=== PATIENT | male | born 1965 | race Caucasian/White ===

== ENCOUNTER 2020-06-16 04:49 | Inpatient (IN) | payer OTHER ==
[2020-06-16] VITALS (7 sets, daily range): BP systolic 104–134; BP diastolic 58–79
[~2020-06-16] VITALS: Ht 175.3 cm; Wt 74.5 kg
[2020-06-16 05:29] LABS: ABSOLUTE NEUTROPHILS 8.8 thou/uL (1.4-8.2); BASOPHILS 0.2 % (0.0-2.0); MCH 30.6 pg (26.0-34.0); MCHC 34.1 g/dL (28.0-37.0); MCV 89.7 fL (80.0-100.0); MONOCYTES 3.9 % (1.0-8.0); PLATELET COUNT 193 thou/uL (150-400); POLYS 85.9 % (36.0-66.0); RBC 4.57 mil/uL (4.50-6.00); RDW 12.7 % (10.5-14.5); WBC 10.3 thou/uL (4.0-11.0)
[2020-06-16] MEDS ORDERED: VENTOLIN HFA INH8 GM INH (05:35)
[2020-06-16] MEDS ORDERED: AVAPRO300 MG PO (05:35)
[2020-06-16] MEDS ORDERED: SYMBICORT160 MCG/4. INH (05:35)
[2020-06-16] MEDS ORDERED: MULTI VITAMIN1 EACH PO (05:36)
[2020-06-16] MEDS ORDERED: ZYRTEC10 M5 PO (05:36)
[2020-06-16] MEDS ORDERED: AZITHROMYCIN 2250 MG PO (05:36)
[2020-06-16] MEDS ORDERED: ZINC SULFATE220 MG PO ×2 (05:36)
[2020-06-16] MEDS ORDERED: VITAMIN D325 MC5 PO (05:37)
--- NOTE | 2020-06-16 05:38 | NUR ---
Pt's number: [phone] Reema () [phone]
[2020-06-16 05:48] LABS: CALCIUM 8.2 mg/dL (8.5-10.1); CREATININE 1.3 mg/dL (0.7-1.3); POTASSIUM 3.7 mmol/L (3.5-5.1)
[2020-06-16 05:56] LABS: TOTAL BILIRUBIN 0.9 mg/dL (0.2-1.0); TOTAL PROTEIN 6.6 g/dL (6.4-8.2)
--- NOTE | 2020-06-16 11:17 | EKG ---
[place] [address] [facility] [place] [address] ELECTROCARDIOGRAM REPORT Name: RAEL MIGUEL Room #: 170-11 ADM IN M.R.#: [id number] Admission: 06/16/20 Attend Phys: Helga Hylton Discharge: Date of : 63 Report #: [id number] ED Test Date: 2020-06-16 Test Time: 05:13:47 Pat Name: REAL MIGUEL Department: Room: 170 Gender: M Fingernail Technician: michel : 1965 Requested By: Patrick Muller Order Number: [id number] MD: Joselito Bryson Measurements Intervals [place] Rate: 82 P: 13 WI: 150 QRS: -42 QRSD: 102 T: 145 QT: 399 QTc: 466 Interpretive Statements Sinus rhythm Abnormal R-wave progression, late transition Abnormal T, consider ischemia, lateral leads No previous ECG available for comparison Electronically Signed On 06-16-2020 11:17:50 ICER MACHINE by Joselito Bryson [email or web address] <ELECTRONICALLY SIGNED> By: Joselito Bryson MD, [facility] 06/16/20 1117 0513 2 Joselito Bryson MD, FACC /EPI
--- NOTE | 2020-06-16 14:20 | NUR ---
PT CARE ASSUMED AT 1248 FROM ER. A&Ox4. ADMISSION COMPLEETED AND ORDERS ACTIVATED. NSR ON TELE. PT CAME UP FROM THE ER ON 3L AND HAD TO BE CHANGED TO 6L DUE TO DESATING TO 78% WHILE RESTING. PT EDUCATED ON PURSED LIPS BREATHING AND KEEPING HOB ELEVATED. DR. HIRSCH INFORMED AND AWAITING FURTHER ORDERES. ADMISSON TELE STRIP ON CHART. CALL LIGHT IN REACH. WILL CONTINUE TO MONITOR.
[2020-06-17] VITALS (7 sets, daily range): BP systolic 125–156; BP diastolic 83–90
--- NOTE | 2020-06-17 00:49 | NUR ---
PT ALERT AND ORIENTED X4 VSS RR 24-28 ON 6LNC.BS DIMINISHED AND CARSE AT BASES. NOTIFIED TOBACCO CLOTH RECLAIMER PT C/O SOA AND WANTED BREATHING TX. INHALERS GIVEN PER RT . PT RESTING QUIETLY PRESENTLY. SPUTUM, URINE AND MRSA, STREP, SAMPLES SENT TO LAB. STARTED ABX ORDERED.
--- NOTE | 2020-06-17 01:49 | NUR ---
PT HAD APPROXIMATELY 17 SEC RUN SVT. T 99.6 RR 28, SAT 93 ON 6LNC. SEE VS. NOTIFIED RT OF SAT AND PT BREATHS WITH MOUTH OPEN NOT BREATHING THROUGH NOSE. HE STATED HE WOULD CHANGE HIM TO HFNC OR MASK AND SET UP O2 SAT MONITOR.
[2020-06-17 02:08] LABS: BE(vivo) 4.6 mmol/L (-2 to +3); HCO3 26.5 mmol/L (22.0-26.0); PCO2 31.6 mmHg (35.0-45.0); pH 7.542 (7.360-7.450); sO2 89.6 % (92.0-98.0)
[2020-06-17 02:09] LABS: PO2 49.2 mmHg (80.0-100.0)
--- NOTE | 2020-06-17 02:33 | NUR ---
NOTIFIED DATA COMMUNICATIONS TECHNICIAN OF INCREASED HYPOXIA. INCREASZED RR , DESATS TO 88% ON 12 HF NC STARTING FROM 6LNC. ABGS DONE AND CALLED TO DATA COMMUNICATIONS TECHNICIAN. STAT PULMONARY CONSULT CALLED TO DR HERRERA. PT PLACED ON BIPAP. NO ICU BEDS AVAILABLE RIGHT NOW. WE WILL SEE OW PT DOES ON BIPAP AND REEVALUATE. DR HERRERA NOTIFIED NO BEDS AVAILABLE.
[2020-06-17 06:21] LABS: ABSOLUTE NEUTROPHILS 12.1 thou/uL (1.4-8.2); BASOPHILS 0.1 % (0.0-2.0); HEMATOCRIT 39.6 % (42.0-52.0); HEMOGLOBIN 13.3 gm/dL (14.0-18.0); LYMPHOCYTES 3.7 % (24.0-44.0); MCH 30.1 pg (26.0-34.0); MCHC 33.5 g/dL (28.0-37.0); MCV 89.8 fL (80.0-100.0); MONOCYTES 4.9 % (1.0-8.0); PLATELET COUNT 202 thou/uL (150-400); POLYS 91.3 % (36.0-66.0); RBC 4.41 mil/uL (4.50-6.00); WBC 13.2 thou/uL (4.0-11.0)
[2020-06-17 06:47] LABS: ALBUMIN 2.6 g/dL (3.4-5.0); CALCIUM 8.4 mg/dL (8.5-10.1); CREATININE 1.2 mg/dL (0.7-1.3); DIRECT BILIRUBIN 0.2 mg/dL (<0.1-0.2); INR 1.1; PHOSPHORUS 3.5 mg/dL (2.5-4.9); PROTIME 10.8 Seconds (9.3-11.4); TOTAL BILIRUBIN 0.6 mg/dL (0.2-1.0); TOTAL PROTEIN 6.7 g/dL (6.4-8.2)
--- NOTE | 2020-06-17 18:15 | NUR ---
ASSUMED PATIENT CARE AT 0700. A/O X4. ON 15L HIGH FOLLOW OR 80% BIPAP. DESAT WITH EEXERTION. FACETIME WITH . NOT TOWARDS POC GOALS.
--- NOTE | 2020-06-18 03:06 | NUR ---
PATIENT ALERT AND ORIENTED X4. BIPAP ON DURING THE NIGHT WITH RT MONITORING. VOIDING PER URINAL. UP ADLIB. CONTINUOUS PULSE OX OPERATING. DENIES PAIN. VITALS STABLE. WILL MONITOR.
--- NOTE | 2020-06-18 05:58 | NUR ---
AFTER ADMINISTERING ONE TIME ORDER OF METOPROLOL 5MG IVP PER SHALE MINER TAHIRA PATIENTS BP 129/66 WITH PULSE OF 75. BREATHING EVEN SITTING UP IN BED. WILL MONITOR.
[2020-06-18 07:04] LABS: ALBUMIN 2.5 g/dL (3.4-5.0); CALCIUM 8.9 mg/dL (8.5-10.1); DIRECT BILIRUBIN 0.1 mg/dL (<0.1-0.2); PHOSPHORUS 3.8 mg/dL (2.6-4.7); POTASSIUM 4.1 mmol/L (3.5-5.1); TOTAL BILIRUBIN 0.6 mg/dL (0.2-1.0); TOTAL PROTEIN 6.9 g/dL (6.4-8.2)
[2020-06-18 07:49] VITALS: BP 108/68
[2020-06-18 15:20] VITALS: BP 106/69
--- NOTE | 2020-06-18 15:31 | NUR ---
INITIAL ASSESSMENT: SW reviewed chart and spoke with nursing and attending physician. Pt was admitted from home due to pneumonia. Pt placed in Enhanced Isolation due to COVID-19. Pt tested positive as an outpatient. Pt is afebrile and requiring bipap support. Pt is on IV abx and IV steroids. Pt is completing courses of Ivermectin and Remdesivir. Per chart, pt is alert/orientated x 4. Pt lives at home with his , who is also COVID positive. Pt was independent with ADLs prior to admission. Pt's PCP is Dr. Chay Vela. Pt will need therapy evals to determine discharge needs. SW is following to assist as needed with discharge planning.
--- NOTE | 2020-06-18 18:27 | NUR ---
ASSUMED PATIENT CARE AT 0700. A/O X 3. CONFUSED. PATIENT HAS BEEN ON CARDIZEN GTT SINCEN IN AM. BP TOLERATED ON CARDIZEM GTT AT 15ML/HR. NOT TOLERATED 15L NC. 70% BIPAP MOST TIME. NOT TOWARDS POC GOALS.
[2020-06-18 19:22] VITALS: BP 122/71
[2020-06-19] VITALS (70 sets, daily range): BP systolic 72–153; BP diastolic 41–86
[2020-06-19 05:40] LABS: HEMATOCRIT 43.4 % (42.0-52.0); HEMOGLOBIN 14.7 gm/dL (14.0-18.0); MCH 30.7 pg (26.0-34.0); MCHC 33.8 g/dL (28.0-37.0); MCV 90.7 fL (80.0-100.0); RBC 4.79 mil/uL (4.50-6.00); RDW 13.3 % (10.5-14.5); WBC 21.4 thou/uL (4.0-11.0)
[2020-06-19 05:55] LABS: ALBUMIN 2.4 g/dL (3.4-5.0); CALCIUM 8.5 mg/dL (8.5-10.1); CREATININE 1.3 mg/dL (0.7-1.3); DIRECT BILIRUBIN 0.1 mg/dL (<0.1-0.2); MAGNESIUM 2.6 mg/dL (1.8-2.4); PHOSPHORUS 4.5 mg/dL (2.6-4.7); POTASSIUM 4.4 mmol/L (3.5-5.1); TOTAL BILIRUBIN 0.6 mg/dL (0.2-1.0); TOTAL PROTEIN 6.4 g/dL (6.4-8.2)
--- NOTE | 2020-06-19 06:07 | NUR ---
PT STILL ON DILTIAZEM DRIP AT 15ML/HR, TELE SHOWS AFIB AND HR 95-117. ADMIT STATUS CHANGED TO CCT. PT ON BIPAP ALL NIGHT. ANXIETY HIGH PT DEMANDS THE CONTINUOS PULSE OX BE FACING HIM. PT USES CALL LIGHT TO CALL OUT FOR NEEDS.
--- NOTE | 2020-06-19 14:56 | NUR ---
SW reviewed chart and spoke with nursing and attending physician. Pt remains in Enhanced Isolation due to COVID-19. Pt transferred to ICU earlier today. Pt afebrile and on cardizem gtt. Pt on IV abx and IV steroids. Completing course of Remdesivir. Pt now intubated. SW is following to assist as needed with discharge planning.
--- NOTE | 2020-06-19 15:19 | NUR ---
VASCULAR ACCESS CONSULTED FOR CVAD MEDICAL NECESSITY AFTER INTUBATION. PT'S LABD,HX REVIEWED. RIJ WAS WIDELY PATENT WITH USG. 25CM 6FR JACC TL INSERTED TO 8CM EXTERNAL. STAT CXR ORDERED
--- NOTE | 2020-06-19 15:29 | NUR ---
CXR CONFIRMED CVAD PLACEMENT. RIJ RELEASED FOR IMMEDIATE USE PER PROTOCOL TO PABLO HEADLEY
--- NOTE | 2020-06-19 19:18 | NUR ---
PT SEEN TODAY BY , WAS INTUBATED BY WELL. PT ARRIVE TO THE UNIT FROM 3W AFTER UNSUCCESFUL USE OF BIPAP/NONREBREATHER, AND INCREASING CONFUSION RELATED TO HYPPOXIA, ABGs WERE ABNORMAL. PT ARRIVED VIA RN/QUARTZ ORIENTATOR ESCORT VIA WHEELCHAIR, WAS ABLE TO TURN SELF INTO BED. PT HAD A BLACK/GOLD RING AT THE TIME OF ARRIVAL, RN TOOK IT OFF, PUT IT IN A PLASTIC BAG, AND TAPED IT TO THE CLOSET SINCE WE CANNOT TAKE ITEMS OUT OF THE ROOM DUE TO COVID. CAPPS WAS STARTED, OG WAS ALSO STARTED, CENTRAL LINE INSERTED WELL. PROPOFOL/FENTANYL/VERSED GTT WAS INITIATED WELL. PT IS CURRENTLY SUSTAINING MAP OF GREATER THAN 65 AND HAD EQUAL URINE OUTPUT INPUT THIS SHIFT. VENTILATOR SETTINGS ARE CONTROLLED BY THE RT. RN SIGNING OFF AT THIS TIME. WAS NOTIFIED, OF PT BEING IN RESTRAINTS AND UPDATED REGARDING CURRENT CONDITON. WANTED RN TO SPEAK WITH THE DAUGHTER, PER STATISTICAL PROGRAMMER, ONLY ONE AUTHORIZED PERSONEL CAN RECEIVE THE INFORMATION, AND RN EXPLAINED THIS AND BARON THE PT'S TO RELAY MUCH INFO POSSIBLE, THAT RN WILL UPDATE IF ANY STATUS CHANGE OCCURS AND THE CAN CALL ANYTIME SHE WISHES FOR AN UPATE. PT'S VERBALIZED UNDERSTANDING OF CURRENT CAREPLAN.
[2020-06-19 21:05] LABS: BE(vivo) -1.9 mmol/L (-2 to +3); HCO3 24.6 mmol/L (22.0-26.0); PO2 185.2 mmHg (80.0-100.0); sO2 99.2 % (92.0-98.0)
[2020-06-19 21:07] LABS: pH 7.327 (7.360-7.450)
--- NOTE | 2020-06-19 22:12 | NUR ---
Updated Reema (spouse) on pt's current condition and events. no significant events and stable with current interventions.
[2020-06-20] VITALS (35 sets, daily range): BP systolic 79–127; BP diastolic 39–82
--- NOTE | 2020-06-20 06:30 | NUR ---
Pt attempted to extubate himself twice overnight but staff was able to intervene. Dr. Malik notified and aware. Additional sedation was ordered for pt. continue with plan of care.
[2020-06-20 06:33] LABS: ALBUMIN 2.4 g/dL (3.4-5.0); CALCIUM 8.3 mg/dL (8.5-10.1); CREATININE 1.8 mg/dL (0.7-1.3); DIRECT BILIRUBIN 0.3 mg/dL (<0.1-0.2); PHOSPHORUS 5.1 mg/dL (2.5-4.9); TOTAL BILIRUBIN 0.8 mg/dL (0.2-1.0); TOTAL PROTEIN 6.3 g/dL (6.4-8.2)
--- NOTE | 2020-06-20 10:44 | NUR ---
Rec glucerna 1.2 to reach goal 45ml/hr. If feeding pump not available, will need to change to Jevity 1.5, 3 cartons per day (Glucerna is not available in cartons). Water flushes 100ml TID ordered by Dr Hylton
--- NOTE | 2020-06-20 19:20 | NUR ---
PT IS NOT PORGRESSING TOWARDS DISCHARGE, PT'S FIO2 STILL REMAINS HIGH AT 90%, PT'S PROPOFOL/LEVOPHED/VERSED/FENTANYL STILL RUNNING AT THIS TIME. URINE OUTPUT WAS DECENT, PT IS RETAINING FLUIDS. PT'S REP ADRIAN CALLED AND WAS UPDATED REGARDING CURRENT STATUS OF THE PT. IT WAS STATED THAT PT IS STILL IN CRITICAL STATUS. ADRIAN WANTED TO SPEAK WITH AN MD AND RECEIVE AN UPDATE. WAS NOTIFIED, ADRIAN LATER IN THE DAY STATED THAT SHE HAD MISSED A PHONE CALL, RN NOTIFIED TO CALL AGAIN. RN SINGING OFF AT THIS TIME
[2020-06-21] VITALS (65 sets, daily range): BP systolic 82–172; BP diastolic 43–87
[2020-06-21 13:38] LABS: HEMATOCRIT 40.9 % (42.0-52.0); HEMOGLOBIN 13.5 gm/dL (14.0-18.0); MCH 30.2 pg (26.0-34.0); MCHC 32.9 g/dL (28.0-37.0); MCV 91.7 fL (80.0-100.0); PLATELET COUNT 315 thou/uL (150-400); RBC 4.47 mil/uL (4.50-6.00); RDW 12.8 % (10.5-14.5); WBC 15.4 thou/uL (4.0-11.0)
[2020-06-21 14:00] LABS: ALBUMIN 2.1 g/dL (3.4-5.0); CALCIUM 8.1 mg/dL (8.5-10.1); CREATININE 1.6 mg/dL (0.7-1.3); TOTAL BILIRUBIN 0.6 mg/dL (0.2-1.0); TOTAL PROTEIN 5.7 g/dL (6.4-8.2)
[2020-06-21 14:58] LABS: ABSOLUTE NEUTROPHILS 14.2 thou/uL (1.4-8.2)
--- NOTE | 2020-06-21 17:53 | NUR ---
PT INTUBATED AND SEDATED. VENT SETTINGS UNCHANGED. SEDATION VACATION THIS AM, PT BECAME VERY TACHYPNEIC, TACHYCARDIC, AND AGITATED. PT WAS FEBRILE TODAY T-MAX 37.7, NO BM, ADEQUATE UOP, TUBE FEED INIATED. LEVOPHED GTT IN PLACE FOR BP SUPPORT. CAPPS REPLACED DUE TO SEDIMENT BUILDUP AND BLOCKAGE OF FLOW. PT HAS BEEN UPDATED AND EDUCATED ON CONDITION AND POC. ATTEMPTED TO CALL ADRIAN, PHONE NUMBER LISTED IS THE WRONG NUMBER. TRIED TO USE SAME NUMBER WITH 816 AREA CODE BUT IT WAS A NON WORKING NUMBER. PT SLOWLY PROGRESSING TOWARDS POC.
[2020-06-21 23:06] LABS: GLYCOHEMOGLOBIN (HGB A1C) 6.2 % (4.8-5.6)
[2020-06-22] VITALS (80 sets, daily range): BP systolic 82–159; BP diastolic 50–96
[2020-06-22 03:13] LABS: CALCIUM 8.1 mg/dL (8.5-10.1); CREATININE 1.4 mg/dL (0.7-1.3); MAGNESIUM 3.4 mg/dL (1.8-2.4); POTASSIUM 5.2 mmol/L (3.5-5.1); TOTAL BILIRUBIN 0.5 mg/dL (0.2-1.0); TOTAL PROTEIN 5.5 g/dL (6.4-8.2)
--- NOTE | 2020-06-22 05:54 | NUR ---
ASSUMED CARE OF PATIENT AT 1900.VSS, REMAINS ON LEVO GTT. UNABLE TO WEAN OFF. TUBE FEED INCREASED TOLERATED. SPOKE WITH , UPDATED POC. NOT PROGRESSING TOWARDS POC GOALS AT THIS TIME.
--- NOTE | 2020-06-22 10:08 | NUR ---
ASSUMED CARE AT 0700, ASSESSMENT AND VITAL SIGNS COMPLETED PER ICU PROTOCOL. PT'S , ADRIAN, CALLED RN FOR AN UPDATE, SECURITY CODE PROVIDED. UPDATE GIVEN TO . RN WILL CONTINUE TO MONITOR.
[2020-06-23] VITALS (106 sets, daily range): BP systolic 85–162; BP diastolic 60–105
--- NOTE | 2020-06-23 03:29 | NUR ---
ASSUMED CARE OF PATIENT AT 1900. PROPOFOL STOPPED. BY 2014 PATIENT WAS TACHYPNIC, DIAPHORETIC, AND RESTLESS. BEGAN GRIMACING AND COUGHING. PROPOFOL TURNED BACK ON AND TITRATED FOR LIGHT SEDATION. BP INCREASED, LEVOPHED GTT STOPPED. FEBRILE AT MIDNIGHT. TYLENOL GIVEN. SLIGHT DOWNWARD TREND IN TEMP. SPOKE WITH , SHE WOULD LIKE TO FACETIME THURSDAY EVENING. WILL COMMUNICATE TO DAY SHIFT. NOT PROGRESSING TOWARDS POC GOALS.
[2020-06-23 03:52] LABS: BE(vivo) 1.7 mmol/L (-2 to +3); HCO3 26.4 mmol/L (22.0-26.0); PCO2 41.7 mmHg (35.0-45.0); PO2 72.9 mmHg (80.0-100.0); pH 7.419 (7.360-7.450); sO2 94.9 % (92.0-98.0)
[2020-06-23 06:05] LABS: HEMATOCRIT 44.8 % (42.0-52.0); HEMOGLOBIN 14.8 gm/dL (14.0-18.0); MCH 30.4 pg (26.0-34.0); MCHC 33.1 g/dL (28.0-37.0); MCV 91.8 fL (80.0-100.0); PLATELET COUNT 273 thou/uL (150-400); RBC 4.87 mil/uL (4.50-6.00); RDW 13.1 % (10.5-14.5); WBC 20.4 thou/uL (4.0-11.0)
[2020-06-23 06:22] LABS: ALBUMIN 2.1 g/dL (3.4-5.0); CALCIUM 8.1 mg/dL (8.5-10.1); CREATININE 1.4 mg/dL (0.7-1.3); POTASSIUM 5.3 mmol/L (3.5-5.1); TOTAL BILIRUBIN 0.7 mg/dL (0.2-1.0); TOTAL PROTEIN 5.9 g/dL (6.4-8.2)
[2020-06-23 07:22] LABS: ABSOLUTE NEUTROPHILS 19.6 thou/uL (1.4-8.2)
[2020-06-23 07:23] LABS: ANISOCYTOSIS SLIGHT
--- NOTE | 2020-06-23 14:10 | NUR ---
ASSUMED CARE AT 0700, ASSESSMENT AND VITAL SIGNS COMPLETED PER ICU PROTOCOL. DR. VILLAGRAN ROUNDED THIS AM, PLAN OF CARE DISCUSSED. PT'S , ADRIAN, CALLED RN FOR AN UPDATE, SECURITY CODE PROVIDED.
[2020-06-24] VITALS (59 sets, daily range): BP systolic 78–142; BP diastolic 54–87
--- NOTE | 2020-06-24 03:37 | NUR ---
ASSUMED CARE OF PATIENT AT 1900. OG RESIDUAL CHECKED, BROWN CHOCOLATE MILK COLOR. STILL NO BM. ALSO TIDALING NOTED IN CHEST TUBE. DR VILLAGRAN NOTIFIED. HOLDING TUBE FEED, OG TO LIS, KUB RESULTS SHOW CONSTIPATION. ORDER RECIEVED FOR SUPPOSITORY, GIVEN DIRECTED. OBTAINED ORDERS FOR GASTRIC OCCULT BLOOD, RESULTS POSITIVE. AT 0100 INCREASED CREPITUS NOTED. CHEST TUBE CHECKED FOR KINK OR DISLODGMENT. NONE NOTED. STAT CXR ORDERED, STILL WAITING FOR RESULTS. DR VILLAGRAN NOTIFIED, ORDERS TO INCREASE TO -40. WAS ABLE TO FACETIME WITH PATIENT FOR AN HOUR OR SO. WOULD LIKE TO DO IT AGAIN. UPDATED HER EARLY IN EVENING ON PROGRESS. ALL QUESTIONS ANSWERED. VERBALIZED UNDERSTANDING. PT NOT PROGRESSING TOWARDS POC GOALS.
[2020-06-24 04:18] LABS: APTT 26.6 Seconds (24.5-32.8); PROTIME 10.7 Seconds (9.3-11.4)
[2020-06-24 04:22] LABS: HEMATOCRIT 45.2 % (42.0-52.0); HEMOGLOBIN 14.5 gm/dL (14.0-18.0); MCH 29.8 pg (26.0-34.0); MCHC 32.1 g/dL (28.0-37.0); RBC 4.86 mil/uL (4.50-6.00); RDW 13.2 % (10.5-14.5); WBC 19.1 thou/uL (4.0-11.0)
[2020-06-24 04:23] LABS: FIBRINOGEN 486.1 mg/dL (210-360)
[2020-06-24 04:39] LABS: BE(vivo) 5.6 mmol/L (-2 to +3); HCO3 31.7 mmol/L (22.0-26.0); PO2 160.5 mmHg (80.0-100.0); pH 7.411 (7.360-7.450)
[2020-06-24 04:41] LABS: ALBUMIN 1.9 g/dL (3.4-5.0); CALCIUM 8.3 mg/dL (8.5-10.1); CREATININE 1.3 mg/dL (0.7-1.3); MAGNESIUM 3.4 mg/dL (1.8-2.4); POTASSIUM 5.6 mmol/L (3.5-5.1); TOTAL BILIRUBIN 0.9 mg/dL (0.2-1.0); TOTAL PROTEIN 5.6 g/dL (6.4-8.2)
--- NOTE | 2020-06-24 09:36 | NUR ---
Assumed care at 0700, assessment and vital signs completed per ICU protocol. Pt's , Reema, called RN for an update, security code provided. RN provided update.
--- NOTE | 2020-06-24 23:12 | NUR ---
2115: Updated on patient condition. Assisted with facetime call so could see and talk to pt.
[2020-06-25] VITALS (69 sets, daily range): BP systolic 89–126; BP diastolic 61–84
[2020-06-25 12:47] LABS: ALBUMIN 1.8 g/dL (3.4-5.0); CALCIUM 8.2 mg/dL (8.5-10.1); CREATININE 1.4 mg/dL (0.7-1.3); MAGNESIUM 3.4 mg/dL (1.8-2.4); PHOSPHORUS 4.2 mg/dL (2.5-4.9); POTASSIUM 5.6 mmol/L (3.5-5.1); TOTAL PROTEIN 5.8 g/dL (6.4-8.2)
[2020-06-25 13:30] LABS: HEMATOCRIT 45.8 % (42.0-52.0); HEMOGLOBIN 14.8 gm/dL (14.0-18.0); MCH 29.9 pg (26.0-34.0); MCHC 32.2 g/dL (28.0-37.0); MCV 92.9 fL (80.0-100.0); RBC 4.93 mil/uL (4.50-6.00); RDW 13.2 % (10.5-14.5); WBC 13.8 thou/uL (4.0-11.0)
--- NOTE | 2020-06-25 16:07 | NUR ---
PT REMAINS SEDATED AND ON VENT FIO2 100%. PT HAD RIGHT SIDED PNEUMOTHORAX WITH CHEST TUBE. GI ALSO FOLLOWING AND HAD SPOKEN WITH SPOUSE AND RECEIVED CONSENT FOR POSSIBLE EGD TOMORROW. PT ON IV MEROPENEM, STEROIDS, IVERMECTIN, REMDESIVIR. CM TO FOLLOW.
--- NOTE | 2020-06-25 19:12 | NUR ---
patient not progressing towards plan of care. gi consulted today to see patient for possible GI bleed. levophed weaned off. fio2 continues at 100%. npo. Dr. Malik spoke with patient represenitive Reema with updates on patients condition.
[2020-06-26] VITALS (69 sets, daily range): BP systolic 95–163; BP diastolic 69–105
[2020-06-26 03:58] LABS: HEMATOCRIT 45.1 % (42.0-52.0); HEMOGLOBIN 14.2 gm/dL (14.0-18.0); MCH 29.7 pg (26.0-34.0); MCHC 31.5 g/dL (28.0-37.0); MCV 94.4 fL (80.0-100.0); RBC 4.77 mil/uL (4.50-6.00); RDW 13.3 % (10.5-14.5); WBC 18.6 thou/uL (4.0-11.0)
[2020-06-26 04:01] LABS: CALCIUM 8.5 mg/dL (8.5-10.1); CREATININE 1.3 mg/dL (0.7-1.3); POTASSIUM 4.9 mmol/L (3.5-5.1)
[2020-06-26 08:29] LABS: BE(vivo) -1.5 mmol/L (-2 to +3); HCO3 21.9 mmol/L (22.0-26.0); PCO2 33.6 mmHg (35.0-45.0); PO2 62.9 mmHg (80.0-100.0); pH 7.432 (7.360-7.450)
--- NOTE | 2020-06-26 11:04 | NUR ---
If tube feeds can restart, recommend jevity 1.5 new goal 60ml/hr or 6 cartons per day. Recheck triglycerides. If tpn to continue, recommend final goal of 85ml/hr 15% dex, 5%AA and 2.9% lipids (hold lipids if trigs still abnormally high)
[2020-06-26 11:55] LABS: MAGNESIUM 3.7 mg/dL (1.8-2.4); PHOSPHORUS 4.3 mg/dL (2.5-4.9)
--- NOTE | 2020-06-26 12:40 | P ---
[facility] [place] [address] PROCEDURE REPORT Name: REAL MIGUEL Room #: 247-P ADM IN M.R.#: [id number] Admission: 06/16/20 Attend Phys: Helga Daren Warner Discharge: Date of : 63 Report #: [id number] THIS REPORT FOR: cc: Sergio Vela Arnold L. DO Martin, Donald J. MD ~ DATE OF SERVICE: 06/26/2020 Upper endoscopy report 06/26/2020, 11:30 in the morning in the ICU at [facility]. INDICATION: For coffee-ground emesis and blood per OG, the patient has COVID pneumonia and respiratory failure. He has been on pantoprazole IV b.i.d. for the past 2 days. Consent was obtained from the spouse. The patient had Versed and fentanyl IV for sedation on the ventilator used for sedation to the procedure. DESCRIPTION OF PROCEDURE: The adult endoscope was introduced through the mouth into the esophagus through the stomach into the second portion of the small bowel and then withdrawn. Careful inspection, the duodenum appeared normal. There was moderate gastritis in the fundus consistent with OG trauma and moderate esophagitis in the distal part of the esophagus. The procedure was then completed without any complications. RECOMMENDATIONS: 1. To continue pantoprazole 40 mg IV b.i.d. 2. To check a KUB and check placement of the OG and if it is proximal to GE junction, then it should be withdrawn and then a new G-tube replaced. Continue to monitor hemoglobin and for OG output. <ELECTRONICALLY SIGNED> By: Benjamin Myers MD 06/26/20 1240 1135 1145 Benjamin Myers MD /nt
--- NOTE | 2020-06-26 19:41 | NUR ---
EDG AT BEDSIDE TODAY WITH DR WOODY AND GI STAFF. SPOKE WITH AND GAVE PATIENT UPDATES THORUGHOUT THE DAY. PATIENT FEVER 101.3. PEEP DECREASED TO 8 AND FIO2 DESCREATED TO 65%. NO BM. CAPPS WITH ADEQUATE URINE OUTPUT. TPN FOR NUTRITION.
[2020-06-27] VITALS (30 sets, daily range): BP systolic 96–149; BP diastolic 69–92
--- NOTE | 2020-06-27 02:53 | NUR ---
ASSUMED CARE OF PATIENT AT 1900. PEEP DECREASED BY RT PER DR HERRERA. O2 TITRATED TO KEEP ABOVE 90%. CALLED AT 2200. DISCUSSED HOW CRITICAL PATIENT IS, ALSO EDUCATED ABOUT POSSIBLE PEG TRACH IN THE FUTURE IF NEEDED. SHE WOULD LIKE TO TALK TO DAUGHTER ABOUT IT AND THE PHYSICIANS IF HE NEEDS IT. PATIENT FEBRILE AND DIAPHORETIC, FENTYNAL INCREASED, PATIENT MUCH MORE RELAXED. NOT PROGRESSING TOWARDS POC GOALS.
[2020-06-27 05:17] LABS: HEMATOCRIT 43.6 % (42.0-52.0); HEMOGLOBIN 14.1 gm/dL (14.0-18.0); MCH 30.1 pg (26.0-34.0); MCHC 32.3 g/dL (28.0-37.0); MCV 93.2 fL (80.0-100.0); RBC 4.67 mil/uL (4.50-6.00); WBC 19.5 thou/uL (4.0-11.0)
[2020-06-27 05:33] LABS: PHOSPHORUS 3.1 mg/dL (2.5-4.9)
[2020-06-27 05:44] LABS: ALBUMIN 1.6 g/dL (3.4-5.0); CALCIUM 8.5 mg/dL (8.5-10.1); MAGNESIUM 2.8 mg/dL (1.8-2.4); POTASSIUM 4.9 mmol/L (3.5-5.1); TOTAL BILIRUBIN 1.8 mg/dL (0.2-1.0); TOTAL PROTEIN 5.4 g/dL (6.4-8.2)
--- NOTE | 2020-06-27 07:22 | EKG ---
[address] [employer] [address] ELECTROCARDIOGRAM REPORT Name: REAL MIGUEL Room #: 247-P ADM IN M.R.#: [id number] Admission: 06/16/20 Attend Phys: Helga Hylton Discharge: Date of : 63 Report #: [id number] [facility] Test Date: 2020-06-27 Test Time: 06:54:23 Pat Name: REAL MIGUEL Department: Room: 247 P Gender: M Recreation Program Specialist: Tolu Mcfarland : 1965 Requested By: Jethro Malik Order Number: [id number] MD: Joselito Bryson Measurements Intervals [place] Rate: 179 P: AL: QRS: -22 QRSD: 89 T: 142 QT: 240 QTc: 415 Interpretive Statements Atrial fibrillation with rapid V-rate Borderline left axis deviation Repolarization abnormality, prob rate related Baseline wander in lead(s) V3 Compared to ECG 06/16/2020 05:13:47 Early repolarization now present Sinus rhythm no longer present T-wave abnormality no longer present Possible ischemia no longer present Electronically Signed On 06-27-2020 7:22:35 FINANCIAL REPORTING ANALYST by Joselito Bryson [email or web address] <ELECTRONICALLY SIGNED> By: Joselito Bryson MD, FAC 06/27/20 0722 0654 [id number] Joselito Bryson MD, [facility] /EPI
--- NOTE | 2020-06-27 15:39 | NUR ---
PT INTUBATED AND SEDATED. FIO2 TITRATED DOWN BY RT TO 90%. UPON START OF SHIFT PT WAS HAVING A CHEST TUBE PLACED BY ED MD ON RIGHT CHEST, AFTER CXR WAS OBTAINED DR HERRERA CONSULTED CT SURGERY TO WITHDRAW TUBE FOR BETTER POSITIONING. DILTIAZAM GTT WAS INIATED DUE TO PT HR IN THE 180'S. BOTH CHEST TUBES WORKING PROPERLY AND IN PLACE WITH VERIFICATION BY CXR. TACHYCARDIA HAS RESOLVED WITH THE USE OF DILTIAZAM GTT AND OTHER IVP MEDS. TUBE FEEDINGS ARE BEING HELD. TPN WAS DISCONTINUED DUE TO ELEVATED LFT'S. COAGULATION RESTARTED AFTER CONSULTING PHYSICIANS AGREED UPON IT. PT HAS DIFFUSE BILATERAL SUBQ AIR FROM MAXILLA TO SCROTUM. SCROTUM IS EXTREMELY EDEMEMOUS, PROVIDER AWARE, HOWEVER IT SEEMS TO BE AIR, AND NOT FLUID THAT IS CAUSING THE SWELLING. PT IS AFEBRILE, ADEQUATE UOP (DARK MC, SEDIMENT, AND MANY SMALL CLOTS), NO BM. PT AND HAVE BEEN UPDATED AND EDUCATED ON PT CONDITION AND POC. PT SLOWLY PROGRESSING TOWARDS POC.
[2020-06-28] VITALS (16 sets, daily range): BP systolic 94–126; BP diastolic 64–76
[2020-06-28 05:11] LABS: HEMATOCRIT 39.6 % (42.0-52.0); HEMOGLOBIN 12.9 gm/dL (14.0-18.0); MCH 30.2 pg (26.0-34.0); MCHC 32.4 g/dL (28.0-37.0); MCV 93.2 fL (80.0-100.0); RBC 4.25 mil/uL (4.50-6.00); RDW 12.8 % (10.5-14.5); WBC 18.2 thou/uL (4.0-11.0)
[2020-06-28 05:32] LABS: BE(vivo) -3.1 mmol/L (-2 to +3); HCO3 21.9 mmol/L (22.0-26.0); PCO2 38.9 mmHg (35.0-45.0); PO2 133.3 mmHg (80.0-100.0); pH 7.368 (7.360-7.450); sO2 98.6 % (92.0-98.0)
[2020-06-28 05:45] LABS: CALCIUM 8.2 mg/dL (8.5-10.1); POTASSIUM 4.9 mmol/L (3.5-5.1)
--- NOTE | 2020-06-28 08:22 | NUR ---
ASSUMED CARE AT 0700, ASSESSMENT AND VITAL SIGNS COMPLETED PER ICU PROTOCOL. RN WILL CONTNUE TO MONITOR.
--- NOTE | 2020-06-28 10:30 | NUR ---
tube feeds will restart. 1. If feeding pump available, use glucerna 1.2 at goal of 70ml/hr 2. If no feeding pump, use Jevity 1.5 and bolus 1 carton, 6x per day 3. Once IVF stopped, add water flush of 240ml every 6hr
[2020-06-29] VITALS (29 sets, daily range): BP systolic 111–138; BP diastolic 68–88
--- NOTE | 2020-06-29 04:47 | NUR ---
ASSUMED CARE OF PATIENT AT 1900. REQUIRES EXTENSIVE ORAL CARE AND O2 MANAGEMENT. FIO2 TITRATED TOLERATED. PEEP REMAINS THE SAME. ATTEMPTED TO TITRATE SEDATION, UNABLE TO TOLERATE. BECOMES TACHYPNIC AND LABORED. RIGHT CHEST TUBE KINKS VERY EASILY, O2 SATS DROP QUICKLY WHEN THIS HAPPENS. ABLE TO RECOVER AFTER A DELAYED AMOUNT OF TIME. ABLE TO FACETIME AT 1945. ALL QUESTIONS ANSWERED. VERBALIZED UNDERSTANDING. NOT PROGRESSING TOWARDS POC GOALS.
[2020-06-29 05:31] LABS: HEMATOCRIT 40.1 % (42.0-52.0); HEMOGLOBIN 12.9 gm/dL (14.0-18.0); MCHC 32.2 g/dL (28.0-37.0); MCV 93.1 fL (80.0-100.0); RBC 4.31 mil/uL (4.50-6.00); RDW 12.9 % (10.5-14.5); WBC 17.6 thou/uL (4.0-11.0)
[2020-06-29 05:44] LABS: CREATININE 0.8 mg/dL (0.7-1.3)
--- NOTE | 2020-06-29 10:34 | NUR ---
SPOKE WITH THIS AM AND UPDATED ON PATIENT STATUS. NO CHANGES SINCE COMMUNICATED TO BY SILVICULTURIST RN. PATIENT REMAINS ON VENT. SEDATED FOR VENT MANAGEMENT.
--- NOTE | 2020-06-29 16:40 | NUR ---
Pt continues on the vent, FiO2 70%. Pt currently off pressor support. He is initiated back on enteral feedings. pt bas bl chest tubes. cm following reargarding needs.
[2020-06-30] VITALS (31 sets, daily range): BP systolic 94–174; BP diastolic 66–93
--- NOTE | 2020-06-30 07:10 | NUR ---
Report received at 1900, care assumed. Assessments done as documented. Spoke with at 2130, updtaed her about pt condition. Verbalized understanding and aware that pt is not progressing well. Factimed with for 30 mins.
--- NOTE | 2020-06-30 13:20 | NUR ---
SPOKE WITH THIS AM AND UPDATED ON PATIENT STATUS. ANSWERED ALL QUESTIONS. SHE WOULD LIKE FOR HIS DOCTORS TO CALL AND UPDATE HER. REQUESTED FOR DR. GARCIA TO CALL . PATIENT VSS. REMAINS ON VENT. VERSED AND FENTANYL GTTS FOR VENT MANAGEMENT. BILATERAL CHEST TUBES PATENT. ABDOMINAL XRAY DONE, WAITING FOR RESULTS.
[2020-07-01] VITALS (32 sets, daily range): BP systolic 95–144; BP diastolic 57–79
--- NOTE | 2020-07-01 01:42 | NUR ---
Report received at 1900, care assumed. Assessments done as documented.Sedation vacation done [id number]. Pt tolerated well. opened eyes, did not follow commands. No pain or discomfort noted. Became tachypneic,sedation started. Talked to updated her on pt condition with regards to vent settings and sedation. also did face time with pt. At 0100, pt having agonal breathes with respirations on the low 30s. Propofol titrated per protocol.
--- NOTE | 2020-07-01 09:43 | NUR ---
ASSUMED CARE OF PT AT 0700. PT'S CALLED AT 0915
--- NOTE | 2020-07-01 10:11 | NUR ---
ASSUMED CARE OF PT AT 0700 CALLED AT 0915 UPDATED HER POC
[2020-07-02] VITALS (36 sets, daily range): BP systolic 84–156; BP diastolic 57–88
[2020-07-02 05:56] LABS: HEMATOCRIT 35.9 % (42.0-52.0); HEMOGLOBIN 11.5 gm/dL (14.0-18.0); MCH 29.6 pg (26.0-34.0); MCHC 32.2 g/dL (28.0-37.0); MCV 91.9 fL (80.0-100.0); RBC 3.91 mil/uL (4.50-6.00); WBC 21.1 thou/uL (4.0-11.0)
[2020-07-02 06:02] LABS: CALCIUM 7.8 mg/dL (8.5-10.1); CREATININE 0.7 mg/dL (0.7-1.3); POTASSIUM 5.1 mmol/L (3.5-5.1)
--- NOTE | 2020-07-02 19:08 | NUR ---
assumed care of pt @ 0700. am cxr obtained to confirm chest tube placement. no sedation vacation on pt. when attemptint to titrate pt began to tachypenic and tachycardic. lasix ordered per amairani and dc iv fluids. tube feed changed to 2.0 day hn x4 cans perday per dietary. L chest tube output increased today than previous night (320cc). TMAX 99.3. No BM today. adequate outpout following lasix. updated on plan of care
[2020-07-03] VITALS (89 sets, daily range): BP systolic 77–128; BP diastolic 51–80
--- NOTE | 2020-07-03 03:55 | NUR ---
RT AT BEDSIDE, AND NOTICED PATIENTS RESPIRATIONS AGONAL, FACE IS RED, AND PRESSURES UP FROM 20 TO F40 ON VENT. CALLED DR VILLAGRAN TO REPORT CHANGES. ORDERS FOR STAT CXR AND STAT ABG.
[2020-07-03 04:13] LABS: BE(vivo) 6.3 mmol/L (-2 to +3); HCO3 33.8 mmol/L (22.0-26.0); PCO2 63.1 mmHg (35.0-45.0); PO2 63.8 mmHg (80.0-100.0); pH 7.347 (7.360-7.450); sO2 90.6 % (92.0-98.0)
[2020-07-03 05:32] LABS: HEMATOCRIT 32.5 % (42.0-52.0); HEMOGLOBIN 10.6 gm/dL (14.0-18.0); MCH 30.3 pg (26.0-34.0); MCHC 32.7 g/dL (28.0-37.0); MCV 92.6 fL (80.0-100.0); RBC 3.51 mil/uL (4.50-6.00); RDW 12.7 % (10.5-14.5); WBC 29.7 thou/uL (4.0-11.0)
[2020-07-03 06:33] LABS: CALCIUM 7.8 mg/dL (8.5-10.1); CREATININE 0.7 mg/dL (0.7-1.3); MAGNESIUM 2.4 mg/dL (1.8-2.4); POTASSIUM 4.8 mmol/L (3.5-5.1)
[2020-07-03 10:49] LABS: ALBUMIN 1.5 g/dL (3.4-5.0); DIRECT BILIRUBIN 0.3 mg/dL (<0.1-0.2); TOTAL BILIRUBIN 0.7 mg/dL (0.2-1.0); TOTAL PROTEIN 4.7 g/dL (6.4-8.2)
--- NOTE | 2020-07-03 14:58 | NUR ---
1130 pt chest tube filled w/clot. janay notified. asked to call cts for chest tube clearance. 1200 Dr. Mcleod at bedside new chest in place. prior L.lateral tube removed and packed w/gauze via Dr. Mcleod. stat cxr for placement. zip ties applied at tube connection site. cover w/tape. chest tube set to -20 suction w/ approximately 300 in prior atrium before discard.
[2020-07-03 17:16] LABS: URINE BILIRUBIN NEGATIVE (Negative); URINE BLOOD TRACE (Negative); URINE CLARITY CLEAR; URINE COLOR YELLOW; URINE GLUCOSE-RANDOM* 2+ (Negative); URINE KETONES NEGATIVE (Negative); URINE LEUKOCYTES-REFLEX NEGATIVE (Negative); URINE NITRITE-REFLEX NEGATIVE (Negative); URINE PROTEIN (DIPSTICK) NEGATIVE (Negative); URINE SPECIFIC GRAVITY 1.015 (1.005-1.035); URINE UROBILINOGEN 0.2 E.U./dl (0.2-1.0)
--- NOTE | 2020-07-03 19:29 | NUR ---
Assume care of patient following report from day shift Chance RN.
[2020-07-03 19:34] LABS: HEMATOCRIT 28.8 % (42.0-52.0); HEMOGLOBIN 9.7 gm/dL (14.0-18.0); MCH 30.4 pg (26.0-34.0); MCHC 33.6 g/dL (28.0-37.0); MCV 90.4 fL (80.0-100.0); PLATELET COUNT 215 thou/uL (150-400); RBC 3.19 mil/uL (4.50-6.00); RDW 12.5 % (10.5-14.5); WBC 35.2 thou/uL (4.0-11.0)
[2020-07-03 19:41] LABS: ANION GAP < 0 mmol/L (7-16); BUN 39 mg/dL (7-18); CALCIUM 7.8 mg/dL (8.5-10.1); CHLORIDE 102 mmol/L (98-107); CO2 36 mmol/L (21-32); CREATININE 0.8 mg/dL (0.7-1.3); GLUCOSE 267 mg/dL (74-106); POTASSIUM 4.8 mmol/L (3.5-5.1); SODIUM 137 mmol/L (136-145)
[2020-07-03 19:51] LABS: ALBUMIN 1.6 g/dL (3.4-5.0); SGOT 25 U/L (15-37); SGPT 73 U/L (16-63); TOTAL BILIRUBIN 0.6 mg/dL (0.2-1.0); TOTAL PROTEIN 4.9 g/dL (6.4-8.2); TROPONIN-I 0.07 ng/mL (<0.06)
--- NOTE | 2020-07-03 20:02 | NUR ---
Assumed care of pt 0700. thick clots visible in pt L lateral chest tube. janay notified and chest tube replaced per dr baxter. chest tube output decerased following insertion of new tube. given lasix scheduled today... output adequate. pt afebrile, lantus added for persistent blood glucose, and reglan added for pt bowel motility. 1800 dr. gustafson notified regarding persistent low bp of pt. orders for cvp, labs, and cxr recieved.
[2020-07-03 20:14] LABS: ABSOLUTE NEUTROPHILS 34.1 thou/uL (1.4-8.2)
[2020-07-03 20:15] LABS: LARGE PLATELETS FEW; PLATELET ESTIMATE NORMAL
[2020-07-04] VITALS (70 sets, daily range): BP systolic 83–144; BP diastolic 51–83
--- NOTE | 2020-07-04 05:33 | NUR ---
PATIENT REMAINS ON VENT AND SEDATION. LEVOPHED CONTINUES AT 22MCG PER MINUTE FOR BP. DID NOT WEAN, BUT WILL GRADUALLY COME DOWN ON LEVOPHED NOW. BP 122/83.
--- NOTE | 2020-07-04 15:58 | NUR ---
ASSUMED CARE OF PT AT 0700. PT SEDATED AND VENTED. VENT SETTINGS CHANGED TO TV 500, AC 20, PEEP 8, PEEP 40%. LEVOPHED RUNNING AT 20MCG TO MAINTAIN MAP >60. BILAT CHEST TUBES IN PLACE. OUTPUT CHARTED. WBC CONTINUES TO INCREASE. ABD US ORDERED. HYPOACTIVE BOWEL SOUNDS. ROBBY GIVEN. VERSED FENTANYL AND PROPOFOL GTT INFUSING PER ORDER. GOOD URINARY OUTPUT. TOLERATING TUBE FEEDS. SPOKE WITH MULTIPLE TIMES REGARDING PLAN OF CARE - WAITING ON PHYSICIAN TO CALL HER BACK. GYPSYM.
--- NOTE | 2020-07-04 16:50 | NUR ---
Case discussed with the care team. Pt remains critically ill on the vent with bilat chest tubes in place. Elev wbc and IV atb. Enhanced ISO dc'd yesterday. awaiting physician call back regarding his plan of care per unit RN. Surgical consult noted for possible trach placement. Dc time frame and needs are uncertain at this time. Will follow.
--- NOTE | 2020-07-04 22:00 | NUR ---
PTS FACE TIMED FOR APPROX 45 MINUTES WITH HER AND WAS VERY APPRECIATIVE.
[2020-07-05] VITALS (137 sets, daily range): BP systolic 79–133; BP diastolic 49–87
[2020-07-05 04:14] LABS: BE(vivo) 14.7 mmol/L (-2 to +3); HCO3 39.4 mmol/L (22.0-26.0); PO2 109.5 mmHg (80.0-100.0); pH 7.506 (7.360-7.450); sO2 98.3 % (92.0-98.0)
--- NOTE | 2020-07-05 06:00 | NUR ---
REMAINS INTUBATED AND SEDATED. FOLLOWS NO COMMANDS FIO2 60 % SUCTIONED FOR A SMALL AMT SECRETIONS. RIGHT CT [address] 100 CC DRAINAGE THIS SHIFT. 600 CC UO REMAINS NPO FOR POSSIBLE TRACH AND PEG TODAY. NOT PROGRESSING TOWARD GOALS
[2020-07-05 06:31] LABS: MCH 30.4 pg (26.0-34.0); MCHC 33.5 g/dL (28.0-37.0); MCV 90.6 fL (80.0-100.0); PLATELET COUNT 221 thou/uL (150-400); RBC 2.65 mil/uL (4.50-6.00); RDW 12.7 % (10.5-14.5); WBC 30.4 thou/uL (4.0-11.0)
[2020-07-05 07:04] LABS: ALBUMIN 1.5 g/dL (3.4-5.0); CALCIUM 7.5 mg/dL (8.5-10.1); CREATININE 0.7 mg/dL (0.7-1.3); POTASSIUM 4.4 mmol/L (3.5-5.1); TOTAL BILIRUBIN 0.6 mg/dL (0.2-1.0)
[2020-07-05 09:50] LABS: ABSOLUTE NEUTROPHILS 29.2 thou/uL (1.4-8.2)
[2020-07-05 09:51] LABS: PLATELET ESTIMATE NORMAL
--- NOTE | 2020-07-05 15:03 | NUR ---
ASSUMED CARE AT 0700. SPOKE WITH PATIENT'S FOR APPROXIMATELY 5 MINS AND SHE WAS UPDATED AND EDUCATED ON THE PATIENT'S CONDITION AND PLAN OF CARE.
--- NOTE | 2020-07-05 22:00 | NUR ---
PTS FACE TIMED FOR APPROX. 30 MINUTES. SHE WAS GREATLY APPRECIATIVE OF THIS SERVICE WE PROVIDE.
[2020-07-06] VITALS (118 sets, daily range): BP systolic 92–163; BP diastolic 52–123
--- NOTE | 2020-07-06 06:00 | NUR ---
REMAINS INTUBATED AND SEDATED WITH PROPOFOL VERSED AND FENTANYL LEVOPHED GTT TITRATED TO 6 MCG SBP 110/70 1500 CC UO THIS SHIFT. ZERO DRG FROM BILAT CHEST TUBES. BATHED REMAINS IN SINUS RHYTHM TO STACH. REMAINS NONRESPONSIVE. NOT PROGRESSING TOWARD GOALS. WILL CONT TO MONITOR
[2020-07-06 09:27] LABS: HEMOGLOBIN 6.9 gm/dL (14.0-18.0); PLATELET COUNT 212 thou/uL (150-400)
[2020-07-06 09:30] LABS: HEMATOCRIT 21.2 % (42.0-52.0); MCH 29.7 pg (26.0-34.0); MCHC 32.8 g/dL (28.0-37.0); MCV 90.4 fL (80.0-100.0); RBC 2.34 mil/uL (4.50-6.00); RDW 12.8 % (10.5-14.5)
--- NOTE | 2020-07-06 09:38 | NUR ---
ASSUMED CARE AT 0700. SPOKE WITH PATIENT'S FROM [id number] AND SHE WAS UPDATED AND EDUCATED ON THE PATIENT'S CONIDITION AND PLAN OF CARE.
[2020-07-06 09:42] LABS: ALBUMIN 1.5 g/dL (3.4-5.0); CALCIUM 7.5 mg/dL (8.5-10.1); CREATININE 0.8 mg/dL (0.7-1.3); POTASSIUM 3.7 mmol/L (3.5-5.1); TOTAL BILIRUBIN 0.6 mg/dL (0.2-1.0)
[2020-07-06 10:54] LABS: ABSOLUTE NEUTROPHILS 25.7 thou/uL (1.4-8.2); HYPOCHROMASIA 1+; PLATELET ESTIMATE NORMAL
--- NOTE | 2020-07-06 13:29 | NUR ---
ON-GOING ASSESSMENT: CM REVIEWED CHART. PT REMAINS ON THE VENT, FI02 50 PERCENT. PLANS WERE FOR TRACH/PEG 07/05 BUT WAS CANCELED DUE TO PTS STATUS. AWAITING PLANS FOR TRACH/PEG PLACEMENT. CM WILL CONTINUE TO FOLLOW.
[2020-07-07] VITALS (58 sets, daily range): BP systolic 73–140; BP diastolic 35–88
--- NOTE | 2020-07-07 00:56 | NUR ---
Updated pt's approximately 2100 and assisted her in face time with pt. Pt continues to breathe with accessory muscles on vent, drops sat down to 88-90% with turns, especially to left side. At shift change, pt had voided large amount around stoner. Bath given and underpads changed. No further leakage around stoner. Bolus feeding given at 2200 and water bolus given at midnight without problems. Pt has had two short episodes of a-fib with RVR (rates 135-145) lasting approximately 10-15 beats. Pt converted back to SR/ST spontaneously. Possible residual subq air on pt's right side between clavicle and jaw line, area appears puffy but no crepitus felt. Right and left chest tubes to suction as ordered, no air leak.
[2020-07-07 05:58] LABS: HEMATOCRIT 26.6 % (42.0-52.0); HEMOGLOBIN 8.7 gm/dL (14.0-18.0); MCH 29.6 pg (26.0-34.0); MCHC 32.6 g/dL (28.0-37.0); MCV 90.8 fL (80.0-100.0); RBC 2.93 mil/uL (4.50-6.00); RDW 14.2 % (10.5-14.5); WBC 27.5 thou/uL (4.0-11.0)
[2020-07-07 06:10] LABS: CALCIUM 7.9 mg/dL (8.5-10.1); CREATININE 0.7 mg/dL (0.7-1.3); POTASSIUM 3.7 mmol/L (3.5-5.1)
--- NOTE | 2020-07-07 09:15 | NUR ---
SPOKE WITH PATIENT'S , ADRIAN, FROM [id number] AND SHE WAS UPDATED AND EDUCATED ON THE PATIENT'S CONDITION AND PLAN OF CARE.
--- NOTE | 2020-07-07 12:38 | EKG ---
[address] [employer] [address] ELECTROCARDIOGRAM REPORT Name: REAL MIGUEL Room #: 247-P ADM IN M.R.#: [id number] Admission: 06/16/20 Attend Phys: Helga Hylton Discharge: Date of : 63 Report #: [id number] [facility] Test Date: 2020-07-07 Test Time: 10:59:59 Pat Name: REAL MIGUEL Department: Room: 247 P Gender: M Crime Scene Technician: : 1965 Requested By: Helga Hylton Order Number: [id number] MD: Blane Huynh Measurements Intervals [place] Rate: 100 P: 46 DC: 133 QRS: -32 QRSD: 96 T: 161 QT: 402 QTc: 519 Interpretive Statements Sinus tachycardia LVH with secondary repolarization abnormality Prolonged QT interval Compared to ECG 06/27/2020 06:54:23 Atrial fibrillation no longer present Electronically Signed On 07-07-2020 12:37:45 JERKER by Blane Huynh [email or web address] <ELECTRONICALLY SIGNED> By: Blane Huynh MD, [facility] 07/07/20 1237 1059 1059 Blane Huynh MD, FACC /EPI
--- NOTE | 2020-07-07 12:41 | NUR ---
SPOKE WITH PT'S , ADRIAN, ABOUT TODAY'S EVENTS AND EMERGENT BRONCHOSCOPY. EMPHASIZED THAT PT'S CONDITION IS GRAVE. REASSURANCE AND EMOTIONAL SUPPORT PROVIDED. QUESTIONS ANSWERED. ADRIAN VERBALLY CONSENTED OVER THE PHONE "TO DO WHATEVER WE NEED TO DO." DR. HERRERA ON THE UNIT AND SPOKE WITH ADRIAN ABOUT PT CONDITION.
--- NOTE | 2020-07-07 13:41 | NUR ---
BEDSIDE BRONCHOSCOPY DONE BY DR. HERRERA AROUND 1245. RT PRESENT DURING PROCEDURE.
--- NOTE | 2020-07-07 14:00 | NUR ---
ASSUMMED CARE OF PATIENT, BEDSIDE BRONCH COMPLETED. PATIENT IS DIAPHORETIC WITH LABORED RESP.
[2020-07-07 15:56] LABS: BE(vivo) 12.9 mmol/L (-2 to +3); HCO3 41.8 mmol/L (22.0-26.0); PO2 224.4 mmHg (80.0-100.0); pH 7.333 (7.360-7.450); sO2 99.4 % (92.0-98.0)
[2020-07-07 15:57] LABS: PCO2 80.5 mmHg (35.0-45.0)
--- NOTE | 2020-07-07 16:15 | NUR ---
PROPOFOL AND LEVOPHED INFUSING AND PATIENT APPEARS MORE COMFORTABLE, LESS DIAPHORETIC AND RESP ARE LESS LABORED. CRITICAL ABG'S CALLED TO DR HERRERA AND ALSO UPDATED ON PATIENT STATUS AND LOW URINE OUTPUT. ORDERS NOTED. NS HUNG PER ORDER
[2020-07-07 19:02] LABS: MAGNESIUM 2.3 mg/dL (1.8-2.4); POTASSIUM 3.8 mmol/L (3.5-5.1)
--- NOTE | 2020-07-07 19:30 | NUR ---
PATIENT IS NOT PROGRESSING TOWARDS OUTCOME GOALS EVIDENT BY. REMAINS INTUBATED WITH SEDATION AND LEVOPHED TO MAINTAIN BP. URINE OUPUT IMPROVED WITH LEVOPHED AND NS BOLUSES. RESP LESS LABORED AND LESS DIAPHORETIC. HAD 13 BEAT RUN OF VTACH EARLIER. POTASSIUM, MAG AND LACTIC ACID LEVELS ARE PENDING. WILL CONTINUE TO MONITOR. PLEASE REFER TO REASSESSMENTS
[2020-07-08] VITALS (78 sets, daily range): BP systolic 82–129; BP diastolic 54–81
[2020-07-08 04:05] LABS: BE(vivo) 9.3 mmol/L (-2 to +3); HCO3 32.9 mmol/L (22.0-26.0); PCO2 40.5 mmHg (35.0-45.0); PO2 62.6 mmHg (80.0-100.0); pH 7.527 (7.360-7.450); sO2 94.1 % (92.0-98.0)
[2020-07-08 04:43] LABS: HEMATOCRIT 26.1 % (42.0-52.0); HEMOGLOBIN 8.5 gm/dL (14.0-18.0); MCH 29.8 pg (26.0-34.0); MCHC 32.6 g/dL (28.0-37.0); MCV 91.4 fL (80.0-100.0); RBC 2.86 mil/uL (4.50-6.00); RDW 14.5 % (10.5-14.5); WBC 21.5 thou/uL (4.0-11.0)
[2020-07-08 05:41] LABS: CALCIUM 8.1 mg/dL (8.5-10.1); CREATININE 0.7 mg/dL (0.7-1.3); POTASSIUM 3.4 mmol/L (3.5-5.1)
--- NOTE | 2020-07-08 06:26 | NUR ---
PATIENT HAD UNEVENTFUL NIGHT. REMAINS ON VENT. DECREASED FI02 TO 45%. TUBE FEEDING GOING. BLOOD GLUCOSE LOW THIS AM. FOLLOWED PROTOCOL FOR HYPOGLYCEMIA.
[2020-07-08 12:32] LABS: % SATURATION 22 % (20-39); IRON 37 ug/dL (65-175); TIBC 168 ug/dL (250-450)
[2020-07-08 13:00] LABS: FOLIC ACID 7.8 ng/mL (8.6-58.9)
--- NOTE | 2020-07-08 19:04 | NUR ---
0730 ASSUMED CARE OF PT. SEDATION VACATION PERFOMRED. PT NOT FOLLOWING COMMANDS. SEDATION DECREASED. UDATED 0900 REGARDING PT STATUS. 1200 MEET PT IN ED TO GIVE HER PT BELONGINGS. LANTUS REDUCED RESULT OF PT LOW BLOOD SUGAR OVER NIGHT. TUBE FEED REMAINS AT 25. [address] HERRERA NOTIFIED. CULTURES DRAWN, ACETIMENOPHIN ADMINISTERED. TEMP IMPROVED BY CHANGE OF SHIFT. R CHEST TUBE STILL W/O OUTOPUT. L CHEST TUBE STILL SANGUINOUS DRAING W/CLOTS PRESENT. NO BM. ADEQUATE OUTPUT FOLLOWING LASIX. REMAINS ON LEVO FOR BP. PT NOT PROGRESSING IN PLAN OF CARE AT THIS TIME
--- NOTE | 2020-07-08 20:39 | NUR ---
Pt's called unit at 2014 and was updated on pt's status. Planning for face time later in shift
--- NOTE | 2020-07-08 23:02 | NUR ---
Assisted pt's , Reema, to facetime with pt around 2130. One port of pt's central line appears to be clotted. Cathflo ordered per protocol.
[2020-07-09] VITALS (66 sets, daily range): BP systolic 84–132; BP diastolic 57–87
[2020-07-09 00:28] LABS: URINE BILIRUBIN NEGATIVE (Negative); URINE BLOOD 1+ (Negative); URINE CLARITY CLEAR; URINE COLOR YELLOW; URINE GLUCOSE-RANDOM* NEGATIVE (Negative); URINE KETONES NEGATIVE (Negative); URINE LEUKOCYTES-REFLEX NEGATIVE (Negative); URINE NITRITE-REFLEX NEGATIVE (Negative); URINE PROTEIN (DIPSTICK) 1+ (Negative); URINE UROBILINOGEN >= 8.0 E.U./dl (0.2-1.0)
--- NOTE | 2020-07-09 00:33 | NUR ---
White port of central line clotted; injected with Cathflo per protocol. Line now open.
[2020-07-09 01:06] LABS: CASTS None Seen /LPF (None Seen); MUCUS None Seen strn/LPF (None Seen); SQUAMOUS None Seen /LPF (0-3)
[2020-07-09 01:07] LABS: BACTERIA-REFLEX None Seen /HPF (None Seen); CRYSTALS None Seen /LPF (None Seen); URINE RBC 3-10 Few /HPF (0-2); URINE WBC-REFLEX None Seen /HPF (0-5); YEAST-REFLEX Present (None Seen)
--- NOTE | 2020-07-09 05:49 | NUR ---
No progress toward goals: Pt remains on vent, unable to titrate down O2. Pt sometimes desats to high 80's with turns, but recovers within 3-5 min. Breathing still appears labored, paradoxical most of the time. Suctioning very small amounts of thick beige sputum. Pt remains on Levophed at 12 mcg/min to maintain MAP >60, unable to titrate down this shift. Monitor remains sinus rhythm, sinus tachycardia with rates 90-106. Both chest tubes remain patent, mild subq air bilaterally above clavicular line.
[2020-07-09 06:18] LABS: CALCIUM 7.8 mg/dL (8.5-10.1); CREATININE 0.6 mg/dL (0.7-1.3); POTASSIUM 3.4 mmol/L (3.5-5.1)
[2020-07-09 06:19] LABS: HEMATOCRIT 26.8 % (42.0-52.0); HEMOGLOBIN 8.9 gm/dL (14.0-18.0); MCH 30.5 pg (26.0-34.0); MCV 92.4 fL (80.0-100.0); RBC 2.91 mil/uL (4.50-6.00); RDW 14.8 % (10.5-14.5); WBC 12.9 thou/uL (4.0-11.0)
--- NOTE | 2020-07-09 10:31 | NUR ---
Pump now available, so changed tube feed formula back to jevity 1.5 and establish goal of 50ml/hr. Continue water flushes the same.
--- NOTE | 2020-07-09 18:35 | NUR ---
ASSUMED CARE OF PT 0700. UPON SHIFT CHANGE PT FEBRILE TMAX 100.8. PRN ACETIMENOPHEN PROVIDED 0745 AND 1200 FOR TEMP. SEADATION VACATION PERFROMED PT CONTINUES NOT FOLLOWING COMMANDS. SEDATION HALVED. [address] WYMAN REGARDING PT STATUS AND BP. 1400 LASIX HELD PER GARO. ADRIAN UPDATED REGARDING PT STATUS AT 0930 & 1500. REQUESTING ADDITIONAL COMMUNICATION FROM PHYSICIAN REGARDING TRACHEOSTOMY TIMELINE. AFEBRILE THIS AFTERNOON. TOLERATING TUBE FEED. NO BM. ADEQUATE OUTPUT. MINIMAL CHEST TUBE OUTPUT IN R SIDE. L CHEST TUBE W/240 OUT. CONTINUING TO WEAN LEVO.
--- NOTE | 2020-07-09 21:15 | NUR ---
PTS ADRIAN FACE TIMED WITH PT. FOR APPROX 30 MINUTES. GREATLY APPRECIATES THIS SERVICE THAT WE OFFER.
[2020-07-10] VITALS (73 sets, daily range): BP systolic 77–167; BP diastolic 42–97
--- NOTE | 2020-07-10 06:00 | NUR ---
REMAINS INTUBATED AND SEDATED WITH PROPOFOL VERSED AND FENTANYL LEVOPHED GTT AT [address] 100 CC OUT AND ZERO FROM RIGHT CT. SINUS RHYTHM. REMAINS ON 45 % FIO2. FOLLOWS NO COMMANS. NOT PROGRESSING TOWARD GOALS.
[2020-07-10 06:23] LABS: HEMATOCRIT 28.2 % (42.0-52.0); HEMOGLOBIN 9.2 gm/dL (14.0-18.0); MCH 30.1 pg (26.0-34.0); MCHC 32.7 g/dL (28.0-37.0); MCV 92.1 fL (80.0-100.0); RBC 3.06 mil/uL (4.50-6.00); RDW 15.8 % (10.5-14.5); WBC 11.3 thou/uL (4.0-11.0)
[2020-07-10 06:42] LABS: CALCIUM 8.6 mg/dL (8.5-10.1); CREATININE 0.7 mg/dL (0.7-1.3)
--- NOTE | 2020-07-10 14:51 | NUR ---
ON-GOING ASSESSMENT: CM REVIEWED CHART. PT HAVING LOW GRADE FEVERS. PT REMAINS ON THE VENT, FI02 [address] RAMOS PLANS ARE FOR TRACH/PEG TOMORROW AT 1PM. CM WILL CONTINUE TO FOLLOW TO ASSIST NEEDED.
--- NOTE | 2020-07-10 17:38 | NUR ---
PT'S UPDATED ON PT CONDITION. CONSENT FOR TRACH AND PEG OBTAINED FOR TOMORROW AFTER DR. RAMOS TALKED TO THE ABOUT THE PROCEDURE. PT IS STILL ON 7MCG OF LEVOPHED. WENT UP ON THE SEDATION PT WAS USING ACCESSORY MUSCLE. CONTINUE TO MONITOR
--- NOTE | 2020-07-10 19:28 | NUR ---
VAT CONSULTED TO CHANGE CVAD SITE DUE TO +BC. LIJ WAS ASSESSES WITH LIMITED VISIBILITY OF VESSEL DUE TO SQ AIR IN NECK. LIJ WAS , ATTEMPTED BUT UNSUCCESSFUL. RN NOTIFIED THAT IR OR SURGEON WILL NEED TO PLACE IN AM DUE TO LIMITED VISABILITY IN NECK WITH USG.
--- NOTE | 2020-07-10 19:35 | NUR ---
IV TEAM ATTEMPTED TO PLACE ANOTHER CENTRAL LINE AT THE LEFT JUGULAR. UNSUCCESSFUL TO PLACE THE LINE. NIGHT RN NOTIFIED. SURGEON AND DR. HERRERA WILL BE NOTIFIED TOMORROW.
[2020-07-11] VITALS (44 sets, daily range): BP systolic 89–116; BP diastolic 53–74
[2020-07-11 05:22] LABS: CREATININE 0.5 mg/dL (0.7-1.3); HEMATOCRIT 23.9 % (42.0-52.0); MCHC 33.6 g/dL (28.0-37.0); MCV 92.2 fL (80.0-100.0); POTASSIUM 3.3 mmol/L (3.5-5.1); RBC 2.59 mil/uL (4.50-6.00); RDW 14.8 % (10.5-14.5); WBC 8.7 thou/uL (4.0-11.0)
--- NOTE | 2020-07-11 10:42 | NUR ---
1035 updated pt (Reema) regarishannan pt status
--- NOTE | 2020-07-11 14:03 | NUR ---
Case reviewed with the care team. Pt remains critically ill in the ICU. Bilat chest tubes in place. On the vent at 45%fio2, tolerating tube feedings and weaning levo. Trach/peg placed for today. Non responsive during sedation vacation. Will continue to follow. Possible LTAC referral in the future.
--- NOTE | 2020-07-11 15:59 | NUR ---
pt to OR @1300... returned 1530 trach 8.0 vince hurley. peg height 5cm.
[2020-07-12] VITALS (95 sets, daily range): BP systolic 87–122; BP diastolic 47–79
--- NOTE | 2020-07-12 03:27 | NUR ---
1930-PATIENT INTUBATED/SEDATED. VSS WITH LOW DOSE LEVOPHED, AFEBRILE, AND PERRL/SLUGGISH. RIGHT AND LEFT CHEST TUBES INTACT.TIDALING OF THE FLUID LEVEL IN THE WATER-SEAL CHAMBER IS NOTED IN THE RIGHT DRAINAGE SYSTEM BUT NOT IN THE LEFT. CHEST TUBE INSERTION SITE DRESSINGS APPEAR DRY AND INTACT, THERE IS CREPITUS TO SHOULDERS AND UPPER ARMS BILATERALLY. MD AWARE. 2119-ABONIMAL BINDER PLACED PER ORDERS AND TUBE FEEDING STARTED @10ML/HR. SPOKE WITH ADRIAN, UPDATED HER ON PATIENT'S CONDITION, MEDICATIONS, VENT SETTINGS, AND POC. RN CALLED ADRIAN AND CONNECTED HER TO [facility] PATIENT. SHE TALKED TO PATIENT FOR ABOUT 15 MINUTES.NO CONCERNS VOICED. WILL CONTUNUE POC
[2020-07-12 05:36] LABS: HEMATOCRIT 26.3 % (42.0-52.0); HEMOGLOBIN 8.6 gm/dL (14.0-18.0); MCH 30.2 pg (26.0-34.0); MCHC 32.8 g/dL (28.0-37.0); MCV 92.4 fL (80.0-100.0); RBC 2.84 mil/uL (4.50-6.00); RDW 15.9 % (10.5-14.5)
[2020-07-12 05:44] LABS: CALCIUM 7.9 mg/dL (8.5-10.1); CREATININE 0.5 mg/dL (0.7-1.3); POTASSIUM 3.8 mmol/L (3.5-5.1)
--- NOTE | 2020-07-12 09:33 | NUR ---
0933- Nurse updated patients , Reema, on patient status, progress, and plan of care. Her questions were answered and nurse reassured her, as she asked, that we will call her with any change. She expressed her thanks for the care we are providing.
--- NOTE | 2020-07-12 12:36 | NUR ---
1200- Patient was decreased on fio2 earlier this morning. Her o2 saturations were 91-92%. She, without trending, decreased her o2 saturation to 77%. RT was notified. RT bagged her for and then suctioned. Her oxygent saturation at this time is 97% on 50% fio2. Dr. Malik rounded and this was informed to him. Nurse also informed him peep has not been changed yet and updated him on plan of care. Per Dr. Malik, once switched to supine positioning at 1500, no need to further prone at this time secondary to lower fio2 requirements.
--- NOTE | 2020-07-12 13:49 | NUR ---
CM CONTACTED ADRIAN,SPOUSE, TO ASSESS EMOTIONAL WELL-BEING. ADRIAN IS HOLDING UP WELL, EXPRESS GRATITUDE FOR THE "HARD" WORK [facility] HAS PROVIDED. ADRIAN STATED SHE UNDERSTANDS THE STAFF IS BUSY DURING THE PANDEMIC SO SHE STRUGGLES BALANCING PATIENCE W/ANXIOUSNESS SHE WANTS TO BE BY HER SIDE. "IT'S HORRIBE I CANT BE THERE." HOWEVER, ADRIAN IS GRATEFUL SHE IS ABLE TO FACETIME W/SPOUSE EACH NIGHT. ADRIAN STATED SHE AND PT CONTRACTED COVID ON 06/08 AND LAID SICK IN BED TOGETHER FOR A WEEK. SHE RECOVERED AND THE PT DID NOT. ADRIAN DENIES QUESTIONS OR CONCERNS AT THIS TIME.
--- NOTE | 2020-07-12 16:48 | NUR ---
Patient progressing towards plan of care as evidenced by decrease temperature, decreased heart rate, trach and peg, tolerating tube feeding. Plan of care is to continue to monitor signs of distress, signs of ability to wean down on ventilator, assess tolerance of nutritional support, and maintain and prevent wounds.
[2020-07-13] VITALS (124 sets, daily range): BP systolic 81–129; BP diastolic 42–77
[2020-07-13 05:54] LABS: HEMATOCRIT 25.1 % (42.0-52.0); HEMOGLOBIN 8.1 gm/dL (14.0-18.0); MCH 30.2 pg (26.0-34.0); MCHC 32.4 g/dL (28.0-37.0); MCV 93.1 fL (80.0-100.0); RBC 2.69 mil/uL (4.50-6.00); RDW 16.2 % (10.5-14.5); WBC 6.5 thou/uL (4.0-11.0)
[2020-07-13 06:09] LABS: CALCIUM 7.8 mg/dL (8.5-10.1); CREATININE 0.5 mg/dL (0.7-1.3); POTASSIUM 3.8 mmol/L (3.5-5.1)
--- NOTE | 2020-07-13 10:07 | NUR ---
WOUND CARE NOTE; L EAR RIM WOUND W/ BLACK ESCHAR, NO DRAINAGE, NO S/S INFECTION, SEE PROCESS INTERVENTION FOR WOUND DETAILS, REMAINS ON VENT, TOLERATED WOUND CARE W/OUT ISSUES, PHOTO TAKEN YESTERDAY BUT UNABLE TO PRINT BATTERY NEEDS CHARGING, BALLAST CLEANING OPERATOR AWARE RECOMMENDATIONS; 1-CLEANSE AREA W/ NS, PAINT W/ BETADINE,DAILY, OPTIFOAM TO CUSHION AREA 2-PILLOW TO AREA FOR PRESSURE RELIEF 3-TURN S0BORXA AND PRN
--- NOTE | 2020-07-13 13:32 | NUR ---
ON THE VENT PER TRACH, VITALS STABLE ON LOW DOSE LEVO FOR BP SUPPORT. ASSESSMENT DOCUMENTED. CHEST TUBES NOTED. TOLERATING TF PER PEG. UPDATED OVER THE PHONE EARLIER TODAY.
[2020-07-13 23:05] LABS: CALCIUM 7.9 mg/dL (8.5-10.1); CREATININE 0.6 mg/dL (0.7-1.3); MAGNESIUM 2.1 mg/dL (1.8-2.4); POTASSIUM 4.5 mmol/L (3.5-5.1)
--- NOTE | 2020-07-13 23:16 | NUR ---
Patient had run of vtach, 5 beats at 2100 after reviewing my monitor strips. Informed Riley CASEY. Orders noted. Lab odered-bmp and mag.
[2020-07-14] VITALS (103 sets, daily range): BP systolic 85–145; BP diastolic 50–90
[2020-07-14 05:45] LABS: HEMATOCRIT 25.7 % (42.0-52.0); HEMOGLOBIN 8.6 gm/dL (14.0-18.0); MCH 31.2 pg (26.0-34.0); MCHC 33.4 g/dL (28.0-37.0); MCV 93.4 fL (80.0-100.0); RBC 2.75 mil/uL (4.50-6.00); RDW 16.9 % (10.5-14.5); WBC 7.9 thou/uL (4.0-11.0)
[2020-07-14 06:00] LABS: CALCIUM 8.2 mg/dL (8.5-10.1); CREATININE 0.6 mg/dL (0.7-1.3)
--- NOTE | 2020-07-14 06:41 | NUR ---
PATIENT HAD 10 BEAT RUN OF VTACH. CALLED TAHIRA FLORES NP. WANTS TO CONSULT DR STOKES, CARDIOLOGY.
--- NOTE | 2020-07-14 15:21 | NUR ---
ON THE VENT PER TRACH,VITALS STABLE WITH LOW GRADE FEVER. LIGTHTLY SEDATED AND WITH SEDATION VACATION GETS TACHYPNIC AND TACHYCARDIC. TOLERATING TUBEFEEDING PER PEG. CHEST TUBES NOTED. CALLED EARLIER AND WAS UPDATED. WILL CONTINUE WITH POC.
[2020-07-15] VITALS (23 sets, daily range): BP systolic 93–150; BP diastolic 60–93
[2020-07-15 06:24] LABS: HEMATOCRIT 26.2 % (42.0-52.0); HEMOGLOBIN 8.5 gm/dL (14.0-18.0); MCH 30.9 pg (26.0-34.0); MCHC 32.6 g/dL (28.0-37.0); MCV 94.8 fL (80.0-100.0); RBC 2.76 mil/uL (4.50-6.00); RDW 17.8 % (10.5-14.5)
[2020-07-15 06:36] LABS: CALCIUM 8.1 mg/dL (8.5-10.1); CREATININE 0.5 mg/dL (0.7-1.3)
--- NOTE | 2020-07-15 15:30 | NUR ---
ON THE VENT PER TRACH, LIGHTLY SEDATED AND WEANED OFF VERSED. VITALS STABLE WITH LOW GRADE FEVER. CHEST TUBES DOCUMENTED, TOLERATING TUBEFEEDING PER PEG TUBE. UPDATED OVER THE PHONE.
[2020-07-16] VITALS (33 sets, daily range): BP systolic 81–157; BP diastolic 44–95
[2020-07-16 05:51] LABS: HEMATOCRIT 27.4 % (42.0-52.0); HEMOGLOBIN 9.1 gm/dL (14.0-18.0); MCH 31.1 pg (26.0-34.0); MCHC 33.1 g/dL (28.0-37.0); RBC 2.92 mil/uL (4.50-6.00); RDW 17.1 % (10.5-14.5); WBC 8.9 thou/uL (4.0-11.0)
[2020-07-16 06:05] LABS: CALCIUM 8.2 mg/dL (8.5-10.1); CREATININE 0.5 mg/dL (0.7-1.3); POTASSIUM 3.8 mmol/L (3.5-5.1)
--- NOTE | 2020-07-16 08:10 | NUR ---
ASSUMED PT CARE AT 1900. VSS. PT INTUBATED AND SEDATED ON PROPOFOL @15 AND FENTANYL @50. PT HAD AN UNEVENTFFUL NOC. WAS ABLE TO TURN DWN FENTANYL YO 40MCG. PT IS STABLE, TOLERATING WEANING OK. BM THIS SHIFT, WILL CONTINUE TO MONITOR PER POC.
--- NOTE | 2020-07-16 10:13 | NUR ---
WOUND CARE F/U; REMAINS ON VENT PER TRACH, BROWNISH ESCHAR L EAR RIM, NO S/S INFECTION, NO ODOR, NO DRAINAGE, SEE PROCESS INTERVENTION FOR WOUND DETAILS, PHOTO TAKEN AND PLACED IN CHART RECOMMENDATIONS; CONT POC W/ BETADINE AND OPTIFOAM (TO CUSHION AREA) DAILY CIRCULATION LIBRARIAN AWARE
--- NOTE | 2020-07-16 11:07 | 2DMMODE ---
[facility] [place] [address] 2 D/M-MODE ECHOCARDIOGRAM Name: REAL MIGUEL Room #: 247-P ADM IN M.R.#: [id number] Admission: 06/16/20 Attend Phys: Helga Mercedes Warner Discharge: Date of : 63 Report #: [id number] THIS REPORT FOR: cc: Sergio Vela Arnold L. DO Lundgren, Craig H. MD [facility] ~ APPROVED REPORT Study performed: 07/16/2020 08:25:00 EXAM: Comprehensive 2D, Doppler, and color-flow Echocardiogram Patient Location: In-Patient Room #: [facility] Status: routine BSA: 1.93 HR: 100 bpm BP: 106/67 mmHg Other Information Study Quality: Technically Limited Risk Factors: Cardiac Risk Factors: DM Indications Diabetes Dyspnea Hypertension/HDD 2D Dimensions IVSd: 10.76 (7-11mm) LVDd: 46.61 mm PWd: 13.72 (7-11mm) Ascending Ao: 40.18 (22-36mm) LVDs: 31.15 (25-40mm) Left Atrium: 37.74 (27-40mm) Aortic Root: 35.29 mm Pulmonary Valve PV Peak Maycol.: 1.11 m/s PV Peak Gr.: 5.02 mmHg Left Ventricle The left ventricle is normal size. Regional wall motion is not well visualized but grossly normal. Mild concentric left ventricular hypertrophy. The left ventricular systolic function is normal. The [facility] [address] [place] [address] 2 D/M-MODE ECHOCARDIOGRAM Name: REAL MIGUEL Room #: 247-P ADM IN M.R.#: [id number] Admission: 06/16/20 Attend Phys: Helga Mittal Discharge: Date of : 63 Report #: [id number] left ventricular ejection fraction is within the normal range. LVEF is 60-65%. Right Ventricle The right ventricle is normal size. The right ventricular systolic function is normal. Atria The left atrium size is normal. The right atrium size is normal. Aortic Valve The aortic valve is trileaflet, minimally sclerotic. No aortic regurgitation is present. There is no aortic valvular stenosis. Mitral Valve The mitral valve is normal in structure. There is no mitral valve regurgitation noted. No evidence of mitral valve stenosis. Tricuspid Valve The tricuspid valve is normal in structure. Trace tricuspid regurgitation. Pulmonic Valve Pulmonic valve is not well visualized. There is no pulmonic valvular regurgitation. Trace pulmonic regurgitation. Great Vessels The aortic root is normal in size. The ascending aorta is mildly dilated (4.0cm). IVC is normal in size and collapses >50% with inspiration. Pericardium Trace pericardial effusion. <Conclusion> Limited study The left ventricular systolic function is normal. Regional wall motion is not well visualized but grossly normal. LVEF is 60-65%. The aortic valve is trileaflet, minimally sclerotic. No aortic regurgitation or stenosis The mitral valve is normal in structure. No mitral valve regurgitation Pulmonary artery pressure could not be reliably ascertained. [facility] [address] [place] [address] 2 D/M-MODE ECHOCARDIOGRAM Name: REAL MIGUEL Room #: 247-P ADM IN M.R.#: [id number] Admission: 06/16/20 Attend Phys: Helga Mittal Discharge: Date of : 63 Report #: [id number] The ascending aorta is mildly dilated (4.0cm). Trace pericardial effusion. <ELECTRONICALLY SIGNED> By: Blane Huynh MD, [facility] 07/16/20 1107 06 Blane Huynh MD, FACC /INF
--- NOTE | 2020-07-16 11:25 | NUR ---
PATIENT REMAINS LIGHTLY SEDATED FOR VENT MANAGEMENT. BECOMES TACHYCARDIC AND TACHYPENIC WHEN SEDATION IS LIGHTENED OR IS REPOSITIED. LOW GRADE FEVERS PERSISTENT. NOTED BY DR. GOODMAN. TRACH CARE DONE BY RESPIRATORY THERAPIST NASH. BILATERAL CHEST TUBES PATENT TO -20 SUCTION. SPOKE WITH THIS AM TO GIVE UPDATES ON PATIENT STATUS. ALL QUESTIONS ANSWERED.
--- NOTE | 2020-07-16 11:26 | NUR ---
POC UPDATE: PT CONT W/VENT AND SEDATIONS. TF. SENT IN SHORT-TERM DISABILITY PAPERWORK TO BE COMPLETED BY DOCTOR.
--- NOTE | 2020-07-16 15:56 | HC ---
[facility] [place] [address] CONSULTATION Name: REAL MIGUEL Room #: 247-P ADM IN M.R.#: [id number] Admission: 06/16/20 Attend Phys: Helga Hylton Discharge: Date of : 63 Report #: [id number] THIS REPORT FOR: cc: Sergio Vela Arnold L. DO Couchonnal, Luis F. MD ~ ELECTROPHYSIOLOGY CONSULTATION REASON FOR CONSULTATION: Nonsustained ventricular tachycardia. HISTORY OF PRESENT ILLNESS: The patient is a 54-year-old male admitted on the with COVID, pretty complex hospital course including the bilateral pneumothoraces, trach and PEG, has recently been doing better. Today, he had an episode of wide complex tachycardia lasting less than 10 beats on telemetry. Reviewing telemetry, he has been in sinus rhythm and has short bursts of atrial tachycardia and the wide one appears to be an atrial tachycardia with some aberration. The patient is intubated. REVIEW OF SYSTEMS: Could not be obtained. PAST MEDICAL HISTORY: Has been reviewed. SOCIAL HISTORY: Does not smoke. FAMILY HISTORY: Noncontributory. ALLERGIES: Reviewed. MEDICATIONS: Reviewed. PHYSICAL EXAMINATION: VITAL SIGNS: Temperature is 37.2, pulse 95, respirations 24, blood pressure 122/72, sats 96%. GENERAL: Intubated, sedated, in no acute distress. NECK: Supple, with no thyromegaly. HEART: Regular rate and rhythm with no murmurs, rubs or gallops. LUNGS: Clear to auscultation bilaterally. ABDOMEN: Soft, nontender, nondistended with no hepatosplenomegaly. EXTREMITIES: There is no clubbing, cyanosis or edema. NEUROLOGIC: Cranial nerves are grossly intact. LABORATORY DATA: Hemoglobin 8, white count 7, platelets 219. Coags: INR 1. Chemistry: Potassium 4, creatinine 0.6. ASSESSMENT: 1. Atrial fibrillation. [facility] [address] [place] [address] CONSULTATION Name: REAL MIGUEL Room #: 247-P [facility] IN [facility]#: [id number] Admission: 06/16/20 Attend Phys: Helga Hylton Discharge: Date of : 63 Report #: [id number] 2. Atrial tachycardia. 3. Atrial tachycardia with aberration. In summary, the patient is a 54-year-old with a complex history of COVID pneumonia, bilateral pneumothoraces, some intermittent paroxysmal atrial fibrillation, which is now resolved. He is not on anticoagulation given prior GI bleeding with esophagitis. I would recommend starting him on a low dose beta kera. Continue with digoxin. I do not think further cardiac workup is required. Thank you for allowing me to participate in his care. Please call with further questions. <ELECTRONICALLY SIGNED> By: Cali Cary MD 07/16/20 1556 1139 1146 Cali Cary MD /nt
--- NOTE | 2020-07-16 19:35 | NUR ---
ASSUMED CARE FOR THE PT AT 1400, PT WAS TAKEN DOWN TO THE CT, PER MD REQUEST. CT WAS COMPLETED. WHEN RN TOOK THE PT, THERE WAS A ROLLED TOWEL PLACED UNDER THE TRACH TUBE FOR POSITIONING, RN MAINTAINED THE ROLLED TOWEL FOR CONTINUITY OF CARE ASSUMING RT/RN HAD PLACED IT PRIOR TO ASSUMPTION OF CARE. CAPPS IS WORKING WELL, TUBE FEEDING RESTARTED PER ORDERS 07/13,. CURRENLTY RUNNING AT 30CC/HR. NO RESIDUALS. Q2H TURNS ARE BEING MAINTAINED. PT HAD A LIQUID BM TODAY, CONSISTENCY WARRANTING OF FECAL MANAGEMENT SYSTEM. RN PROVIDED REPORT, NOW SIGNING OFF
[2020-07-17] VITALS (38 sets, daily range): BP systolic 74–154; BP diastolic 41–91
[2020-07-17 05:35] LABS: HEMOGLOBIN 9.3 gm/dL (14.0-18.0); MCH 31.6 pg (26.0-34.0); MCHC 33.3 g/dL (28.0-37.0); MCV 95.1 fL (80.0-100.0); RBC 2.95 mil/uL (4.50-6.00); RDW 18.3 % (10.5-14.5); WBC 8.3 thou/uL (4.0-11.0)
[2020-07-17 06:14] LABS: CALCIUM 8.4 mg/dL (8.5-10.1); CREATININE 0.5 mg/dL (0.7-1.3); POTASSIUM 3.7 mmol/L (3.5-5.1)
--- NOTE | 2020-07-17 08:30 | NUR ---
Please advance pt tube feeding to established goal of 50ml/hr
--- NOTE | 2020-07-17 08:32 | NUR ---
Advance tube feeding to new established goal of 55ml/hr
--- NOTE | 2020-07-17 08:35 | NUR ---
New tube feeding goal is 60ml/hr, please advance rate.
[2020-07-17 09:37] LABS: BE(vivo) 8.9 mmol/L (-2 to +3); HCO3 34.1 mmol/L (22.0-26.0); PCO2 51.4 mmHg (35.0-45.0); PO2 98.8 mmHg (80.0-100.0); sO2 97.6 % (92.0-98.0)
--- NOTE | 2020-07-17 13:45 | NUR ---
FOLLOWING FOR DC PLANNING. CLINICAL INFO REVIEWED. RECEIVED CALL FROM SAVANNAH/[facility] RN REMI, WHO PROVIDES PT. ADVOCACY AND ASSISTANCE WITH DC PLANNING P:[phone] EXT [phone]/F:[phone]. FAXED REQUESTED CLINICAL AND LEFT VM WITH REQUEST TO IDENTIFY IN NETWORK LTACH IN AREA WILL NEED LTACH FOR VENT WEANING AND CONTINUED ACUTE CARE. EL
--- NOTE | 2020-07-17 14:42 | NUR ---
WOUND CONSULT; RN PRESENT TODAY. THE PATIENTS BUTTOCK WAS ASSESSED WITH THE ASSISTANCE OF THE RECRUITER COORDINATOR. WE IDENTIFIED AREAS TO THE BILATERAL BUTTOCKS, SMALLER ON THE RIGHT 1 X 1 X 0.1 AND THE LEFT 2.5 X 2.5 X 0.1 PINK WOUND BEDS. SCANT DRAINAGE WITH NO S/S OF INFECTIONS. THE FRAYED SKIN IS CLEANRLY SEEN IN THE PICTURE WHICH IS CONSISTANT WITH FRICTION. RECOMMMEDNATIONS; -ZGUARD TID/PRN -Q2H TURNING RN PRESENT.
--- NOTE | 2020-07-17 19:15 | NUR ---
Patient advanced towards goals today. sedation was paused for a few hours today. He nodded and shook his head appropriately to yes and no questions. He at best was oriented to self only. He lasted 12 min on CPAP before he asked to be put back on settings. After this his WOB was still increased in addition to he was tachycardia, diaphoretic, and tachypnic so sedation was restarted. Plans to continue sedation vacations and CPAP trials. Reema, , was able to visit at [facility] today for 15 min. She also facetimed and was updated thrice throughout the day.
[2020-07-18] VITALS (64 sets, daily range): BP systolic 88–145; BP diastolic 47–92
--- NOTE | 2020-07-18 09:40 | NUR ---
ASSUMED CARE AT 0700. PATIENT'S , ADRIAN, CAME TO VISIT STARTING AT 0936. SHE WAS UPDATED AND EDUCATED ON PATIENT'S CONDITIONA DN PLAN OF CARE.
--- NOTE | 2020-07-18 10:38 | NUR ---
WOUND CARE F/U; THE PATIENT HAS SUPERFICIAL FRICTION INJURIES TO THE BUTTOCKS BILATERALLY. NO S/S OF INFECTION. THE LEFT EAR MECHANICAL PRESSURE INJURY HAS STABLE ESCHAR.THE RN TODAY INFORMED WOUND CARE RELATED TO AN AREA OF CONCERN TO THE RIGHT LATERAL FOOT FROM MECHANICAL PRESSURE DUE TO HOSPITAL EQUIPTMENT. THE SKIN IS INTACT AND BRUISED. RECOMMEDATIONS; -CONTINUE CURRENT ORDERS -RIGHT LATERAL FOOT PAINT WITH BETADINE. DISCUSSED WITH RN.
--- NOTE | 2020-07-18 12:14 | NUR ---
S/W PT'S THIS AM TO DISCUSS LTAC OPTIONS AND SHE IS INTERESTED IN [facility]. WILL HAVE DC INVOICE CHECKER FAX REFERRALS TO THEM. WISHES TO RESEARCH FACILITIES THEN WILL LET ME KNOW HER FIRST CHOICE OF FACILITIES. SHE IS WANTING TO KNOW THE VISITOR POLICES WELL AT [facility] FACILITIES. SHE IS ALSO CONCERNED RELATED TO PT'S DISABILITY PLAN & WANTS ME TO FAX HIS MEDICAL RECORDS TO THE [facility] FAX # [phone] USING LEAVE ID [phone]. SHE WAS ALSO ASKING ABOUT PAPERWORK THAT WAS E-MAILED ON THURSDAY & IF IT HAD BEEN COMPLETED YET. IT IS MY UNDERSTANDING THAT ANOTHER CASEMANAGER HAS THIS PAPERWORK & IS WORKING WITH DR WYMAN TO COMPLETE IT. ADRIAN () IS ALSO ASKING IF I WOULD S/W [facility]'S ADULT DTR VERNELL BECKMAN, I GREED TO HAVE HER CALL ME.
--- NOTE | 2020-07-18 16:20 | NUR ---
ACCEPTED PT MIDSHIFT. PT TRACHED AND LIGHTLY SEDATED ON PRECEDEX. PUPILS ARE 4/5 AND REACT BRISKLY TO LIGHT. PT DOES NOT FOLLOW SIMPLE COMMANDS. LEFT CHEST TUBE PLEURAL-VAC WAS REPLACED BECAUSE IT WAS FULL. TUBE IS PATENT AND TO WATER SEAL. RIGHT CHEST TUBE IS IN PLACE AND UNKINKED, NO TIDLING OR AIRLEAK. PT AFEBRILE, ADEQUATE UOP, BM X1, TOLERATING TUBE FEED AT GOAL. PT AND SPOUSE HAVE BEEN UPDATED AND EDUCATED ON PT CONDITION AND POC. PT SLOWLY PROGRESSING TOWARDS POC.
[2020-07-19] VITALS (77 sets, daily range): BP systolic 47–146; BP diastolic 22–85
--- NOTE | 2020-07-19 07:29 | NUR ---
PATIENT VERY RESTLESS LAST NIGHT AROUND MIDNIGHT. LORAZEPAM GIVEN THEN SCHEDULED METOPROLOL. BP THEN WENT DOWN, RECEIVED ONE LITER NS FOR LOW BP. PRECEDEX @ 0.4 AT THIS TIME AND VSS
--- NOTE | 2020-07-19 09:53 | NUR ---
SPOKE WITH EDER IN ADM AT [facility] OF OP THEY CAN ACCEPT PT CLINICALLY. THEIR VISITOR POLICY IS M-F 2-8PM AND SAT/SUM 11-5.
--- NOTE | 2020-07-19 09:55 | NUR ---
ASSUMED CARE AT 0700. PATIENT'S , ADRIAN, VISITED THE PATIENT IN PERSON FROM [phone]. SHE WAS UPDATED AND EDUCATED ON THE PATIENT'S CONDITION AND PLAN OF CARE.
[2020-07-19 12:43] LABS: HEMATOCRIT 27.7 % (42.0-52.0); HEMOGLOBIN 9.1 gm/dL (14.0-18.0); MCH 31.7 pg (26.0-34.0); MCHC 32.8 g/dL (28.0-37.0); MCV 96.7 fL (80.0-100.0); RBC 2.86 mil/uL (4.50-6.00); RDW 20.1 % (10.5-14.5); WBC 8.3 thou/uL (4.0-11.0)
[2020-07-19 12:52] LABS: CALCIUM 7.8 mg/dL (8.5-10.1); CREATININE 0.6 mg/dL (0.7-1.3); POTASSIUM 3.2 mmol/L (3.5-5.1)
--- NOTE | 2020-07-19 14:56 | NUR ---
S/W PT'S ADRIAN BY PHONE & SHE IS ASKING ABOUT [facility] SHORT-TERM DISABILITY PAPERWORK FOR GUARDIAN. CONTACTED DR SAVAGE & SHE SAYS TO LEAVE THE PAPERWORK IN THE OFFICE & SHE WILL TRY TO HAVE IT COMPLETED BY 12 NOON TOMORROW. PT'S ALSO DROPPED OFF EMERGENCY GUARDIANSHIP PAPERWORK THIS AM & IT WAS PLACED ON THE FRONT OF THE CHART BY THE LICENSED PSYCHIATRIC TECHNICIAN. MESSAGE SENT TO DR VILLAGRAN TO SEE IF HE IS WILLING TO COMPLETE THE GUARDIANSHIP PAPERWORK. ASKED IF SHE HAD MADE ANY DECIONS ON THE LTAC OPTIONS & SHE HAS NOT. ENCOURAGED HER TO TOUR BOTH FACILITIES MICHAEL. SHE SAYS SHE IS TRYING TO INCLUDE PT'S OLDEST DTR IN THE DECISION MAKING FOR THE LTAC. INFOMED OF THE VISITOR POLICY AT [facility] & [facility].
[2020-07-20] VITALS (47 sets, daily range): BP systolic 64–163; BP diastolic 40–97
[2020-07-20 01:12] LABS: HEMATOCRIT 26.3 % (42.0-52.0); HEMOGLOBIN 8.6 gm/dL (14.0-18.0); MCH 31.6 pg (26.0-34.0); MCHC 32.8 g/dL (28.0-37.0); MCV 96.5 fL (80.0-100.0); RBC 2.73 mil/uL (4.50-6.00); RDW 20.3 % (10.5-14.5); WBC 7.5 thou/uL (4.0-11.0)
[2020-07-20 01:20] LABS: ALBUMIN 1.6 g/dL (3.4-5.0); CALCIUM 7.7 mg/dL (8.5-10.1); CREATININE 0.4 mg/dL (0.7-1.3); MAGNESIUM 2.1 mg/dL (1.8-2.4); TOTAL BILIRUBIN 0.4 mg/dL (0.2-1.0); TOTAL PROTEIN 5.2 g/dL (6.4-8.2)
[2020-07-20 02:01] LABS: POTASSIUM 4.3 mmol/L (3.5-5.1)
--- NOTE | 2020-07-20 04:54 | NUR ---
ASSUMED CARE OF PATIENT AT 1900. CXR RESULTS CALLED TO DR VILLAGRAN, ORDERS TO PUT LEFT CHEST TUBE TO SUCTION OBTAINED. PATIENT TACHYPNIC AND DIAPHORETIC INTERMITTENTLY. DENIES PAIN. ABLE TO ANSWER YES/NO QUESTIONS APPROPRIATELY. WOUND CARE DONE ON LEFT UPPER CHEST TUBE INSERTION SITE. ATRIUM REPLACED TO SINGLE CHAMBER. ADRIAN UPDATED AT BEGINNING OF SHIFT, ABLE TO FACETIME WITH HIM FROM [id number]. WILL CONTINUE TO MONITOR CLOSELY.
[2020-07-20 05:00] LABS: BE(vivo) 6.9 mmol/L (-2 to +3); HCO3 29.8 mmol/L (22.0-26.0); PCO2 35.6 mmHg (35.0-45.0); sO2 96.1 % (92.0-98.0)
--- NOTE | 2020-07-20 08:00 | NUR ---
ASSUMMED CARE OF PATIENT FROM ALURO THE NIGHT NURSE AT 0700. DR VILLAGRAN IN TO EXAMINE PATIENT AND CHEST TUBES. LEFT LUNG BREATHE SOUNDS ARE DISTANT AND HE IS AWARE. WILL CONTINUE TO MONITOR.
[2020-07-20 11:25] LABS: URINE BILIRUBIN NEGATIVE (Negative); URINE BLOOD 2+ (Negative); URINE CLARITY SL CLOUDY; URINE COLOR YELLOW; URINE GLUCOSE-RANDOM* NEGATIVE (Negative); URINE KETONES TRACE (Negative); URINE LEUKOCYTES-REFLEX TRACE (Negative); URINE NITRITE-REFLEX NEGATIVE (Negative); URINE PROTEIN (DIPSTICK) 1+ (Negative); URINE SPECIFIC GRAVITY 1.015 (1.005-1.035); URINE UROBILINOGEN 0.2 E.U./dl (0.2-1.0)
[2020-07-20 11:42] LABS: YEAST-REFLEX Present (None Seen)
[2020-07-20 11:44] LABS: URINE RBC 0-2 Rare /HPF (0-2)
[2020-07-20 11:45] LABS: URINE WBC-REFLEX 0-5 Rare /HPF (0-5)
[2020-07-20 11:46] LABS: CALCIUM OXALATE 0-3 Few /LPF (None Seen)
[2020-07-20 11:47] LABS: CASTS None Seen /LPF (None Seen); SQUAMOUS None Seen /LPF (0-3)
[2020-07-20 11:48] LABS: BACTERIA-REFLEX None Seen /HPF (None Seen)
--- NOTE | 2020-07-20 12:30 | NUR ---
PATIENT'S , ADRIAN IN TO VISIT AND ABLE TO SPEAK WITH DR WYMAN. REQUESTED THAT WE HELP HIM SLEEP WITH THE PRECEDEX.
--- NOTE | 2020-07-20 13:07 | NUR ---
SPOKE WITH TAHIRA IN ADM AT [facility] THEY CAN ACCEPT SW ([facility]) WILL DISCUSS WITH PT'S WHICH FACILITY SHE WANTS PT TO DC TO.
--- NOTE | 2020-07-20 14:00 | NUR ---
URINE, SPUTUM AND BLOOD CULTURES X 2 DRAWN AND TAKEN TO LAB.
--- NOTE | 2020-07-20 14:28 | NUR ---
DR WYMAN SAYS SHE COMPLETED PT'S SHORT TERM DISABILITY PAPERWORK TO THE BEST OF HER ABILITY AND LEFT IT ON THE CHART. SHE ALSO COMPLETED INFO FOR EMERGENCY GUARDIANSHIP PAPERWORK & THIS WAS GIVEN TO PT'S BY THE RN TODAY.
--- NOTE | 2020-07-20 14:37 | NUR ---
S/W AGAIN AND SHE HAS THE SHORT TERM DISABILITY PAPERWORK & TOOK THE INFO TO THE DIRECTOR DIGITAL MARKETING FOR EMERGENCY GUARDIANSHIP. SHE HAS NOT MADE ANY DECISIONS RELATED TO LTAC'S YET. SHE SAYS SHE WISHES TO GO TOUR THE FACILITIES. ENCOURAGED HER TO DO THIS SOON SHE CAN SO WE WILL KNOW HER FIRST CHOICE ONCE PT IS MEDICALLY STABLE. PT CONTINUES ON VENT & HAS LEFT CHEST TUBE TO SUCTION.
--- NOTE | 2020-07-20 18:30 | NUR ---
PATIENT IS SLOWLY PROGRESSING TOWARDS OUTCOME GOALS. FEVER IS DOWN, LESS DIAPHORETIC. ABLE TO SLEEP FOR PERIODS THIS AFTERNOON AND IS NOW WATCHING TV. WILL CONTINUE TO MONITOR. PLEASE SEE REASSESSMENTS FOR UPDATES.
[2020-07-21] VITALS (65 sets, daily range): BP systolic 60–165; BP diastolic 34–98
--- NOTE | 2020-07-21 06:29 | NUR ---
ASSESSMENT DOCUMENTED.PT PROGRESSING TOWARDS DISCHARGE GOAL SLOWLY,AWAKE MOST OF THE NIGHT.FOLLOW COMMANDS.ABLE TO VOICE NEEDS AT TIMES VIA NODDING HEAD AND WHISPERING.ABLE TO READ HIS LIPS TO UNDERSTAND HIS NEEDS.VSS.HYPOTENSIVE AT TIMES WHILE SLEEPING,RECOVERS QUICKLY WHEN AWOKEN.JEFRY DD,1700CC OF UO OBTAINED.TURNED AND REPOSITONED FREQUENTLY.PT FREQUENTLY ASKING TO BE HAVE HIS HOB UP ALL WAY.REMAINS ON TRACH VENT,ON PRECEDEX FOR SEDATION.TOLERATING.PT HAD A FACETIME WITH LAST NOC. UPDATED ON POC.NO APPARENT S/SX OF PAIN NOTED.NO OTHER CONCERNS NOTED OR REPORTED.
--- NOTE | 2020-07-21 18:27 | NUR ---
assumed care of pt 0700. pt awake nodding to questions. c/o pain throghout day prn provided. pain more anxiety related ativan prn given. pt systolic bp in 70's. janay notified levo started 1445. at bedside throughout afternoon. decreasing on levo. precedex gtt off since hypotension bout began. adequate output. no bm. continues to be very weak, although, progressing in nursing plan of care.
--- NOTE | 2020-07-21 21:42 | NUR ---
2013-SPOKE W/ PT'S ADRIAN ON THE PHONE, GAVE UPDATE ABOUT THE EVENING, REPORTED PT WAS CURRENTLY DENYING PAIN OR ANXIETY., AND HAD BEGUN TITRATING LEVOPHED DOWN. SHE ASKED TO FACETIME WHEN AVAILABLE THIS EVENING. 2029-TOOK IPAD INTO PT ROOM AND CALLED ADRIAN. PT DID START TO FEEL ANXIOUS DURING CALL, GAVE PRN DOSE OF ATIVAN, MAKING HIM DROWSY. 2114-GAVE TYLENOL VIA PEG FOR FEVER.
[2020-07-22] VITALS (58 sets, daily range): BP systolic 101–146; BP diastolic 61–87
[2020-07-22 07:18] LABS: HEMATOCRIT 26.9 % (42.0-52.0); HEMOGLOBIN 8.8 gm/dL (14.0-18.0); MCH 31.8 pg (26.0-34.0); MCHC 32.8 g/dL (28.0-37.0); MCV 96.7 fL (80.0-100.0); RBC 2.78 mil/uL (4.50-6.00); RDW 20.6 % (10.5-14.5); WBC 8.6 thou/uL (4.0-11.0)
[2020-07-22 07:35] LABS: ALBUMIN 1.8 g/dL (3.4-5.0); CALCIUM 7.7 mg/dL (8.5-10.1); CREATININE 0.4 mg/dL (0.7-1.3); POTASSIUM 3.4 mmol/L (3.5-5.1); TOTAL BILIRUBIN 0.3 mg/dL (0.2-1.0); TOTAL PROTEIN 5.5 g/dL (6.4-8.2)
--- NOTE | 2020-07-22 18:46 | NUR ---
ASSUMED CARE 0700. AT BEDSIDE 0930. PT TILTED TO RIGHT SIDE AND SUCTION INCREASED IN L LATERAT CHEST TUBE FOR 30 MINS AM PER SPARKLE. VERY ANXIOUS THROUGHOUT AFTERNOON EVENING. TOLERATING TUBE FEED. PT CONSULT IN PLACE. TMAX 101.3. PRN FOR TEMP. NO BM TODAY. STARTED ON NEW ABX ADN ANTIFUNGAL PER ID.
[2020-07-23] VITALS (32 sets, daily range): BP systolic 107–154; BP diastolic 66–94
[2020-07-23 04:40] LABS: BE(vivo) 6.1 mmol/L (-2 to +3); HCO3 29.3 mmol/L (22.0-26.0); PCO2 36.2 mmHg (35.0-45.0); PO2 82.9 mmHg (80.0-100.0); pH 7.526 (7.360-7.450); sO2 97.2 % (92.0-98.0)
[2020-07-23 04:42] LABS: ABSOLUTE NEUTROPHILS 4.5 thou/uL (1.4-8.2); BASOPHILS 0.3 % (0.0-2.0); EOSINOPHILS 2.5 % (0.0-3.0); HEMOGLOBIN 8.1 gm/dL (14.0-18.0); LYMPHOCYTES 6.1 % (24.0-44.0); MCH 32.1 pg (26.0-34.0); MCHC 33.6 g/dL (28.0-37.0); MCV 95.6 fL (80.0-100.0); MONOCYTES 6.6 % (1.0-8.0); PLATELET COUNT 225 thou/uL (150-400); POLYS 84.5 % (36.0-66.0); RBC 2.51 mil/uL (4.50-6.00); RDW 20.4 % (10.5-14.5); WBC 5.3 thou/uL (4.0-11.0)
--- NOTE | 2020-07-23 04:45 | NUR ---
ASSUMED PT CARE AT 190. VSS. PT ALERT AWAKE, ON 0.5MCG OF PRECEDEX ASKING FOR HIS , WANTS RN TO CALL " AND TELL HER I LOVE HER". CALLED UNIT AT 2020, UPDATED HER ON PT'S STATUS AND RELAYED PT'S MESSAGE TO HER. RN CALLED BACK AT 2109 FOR A FACETIME CALL WITH PT. THROUGH THE NOC PT WOULD ASK FOR HIS AND REQUEST THAT SHE BE PRESENT; FREQUENT REASSURANCE THAT WILL BE HERE IN THE AM WAS GIVEN TO PT.PT GOT SOME REST TONIGHT. TRACH INTACT; PT REQUESTED FREQUENT SUCTIONING AND MOUTH SWABS. PT HAD GREAT U/O THIS SHIFT; ABOUT 2275ML OUT.BILATERAL CHEST TUBES REMIANS INTACT. PT STILL FEBRILE, LAST TEMP 101.1. TYLENOL GIVEN. PT IS STABLE; WILL CONTINUE TO MONITOR PER POC.
[2020-07-23 05:12] LABS: ALBUMIN 1.6 g/dL (3.4-5.0); CREATININE 0.4 mg/dL (0.7-1.3); POTASSIUM 3.6 mmol/L (3.5-5.1); TOTAL BILIRUBIN 0.3 mg/dL (0.2-1.0); TOTAL PROTEIN 5.2 g/dL (6.4-8.2)
--- NOTE | 2020-07-23 16:23 | NUR ---
UR nurse updated Sabrina Silva at [phone] of patient status. [facility] for [facility]. Persistent low grade fever of 101. Maintained on ventilatory support Fi02 of 40%, tolerating tube feeding and continues to appears chronically ill. CM will follow for discharge needs
--- NOTE | 2020-07-23 19:27 | NUR ---
assumed care of pt 0700. pt awake and responding to questions. at bedside from 1705-8810. precedex off today. xanax started via peg. L chest tube suction increased per Joycelyn. several bm's today. pt eval today. tmax 100.5. prn tylenol for temp. progressing in plan of care
[2020-07-24] VITALS (32 sets, daily range): BP systolic 99–148; BP diastolic 57–89
--- NOTE | 2020-07-24 05:11 | NUR ---
ASSUMED CARE OF PATIENT AT 1900. AT 2030 AFTER WATER FLUSH AND MEDS, STARTED VOMITING TUBE FEED OUT OF MOUTH. TUBE FEED TURNED OFF. ZOFRAN GIVEN, STAT KUB ORDERED. RESULTS CALLED TO ANIKET VEE FINISH OPENER. KEPT PATIENT NPO FOR THE NIGHT. REMAINS FEBRILE, NO RELIEF FROM TYLENOL. WORKING TOWARDS POC GOALS.
--- NOTE | 2020-07-24 09:52 | NUR ---
ASSUMED CARE AT 0700, ASSESSMENT AND VITAL SIGNS COMPLETED PER ICU PROTOCOL. PT'S , ADRIAN, BEDSIDE AT 09:30 THIS MORNING. RN PROVIDED UPDATE, PT RESTING COMFORTABLY.
[2020-07-25] VITALS (32 sets, daily range): BP systolic 107–139; BP diastolic 62–83
--- NOTE | 2020-07-25 01:44 | NUR ---
ASSUMED CARE OF PATIENT AT 1900. REMAINS ANXIOUS AT TIME. C/O PAIN IN LEGS. FENTYNAL IV PUSH INEFFECTIVE. XANAX AND MUSCLE RELAXER MUCH MORE EFFECTIVE, PATIENT RESTING THROUGH THE NIGHT. ABLE TO FACETIME WITH FROM 8979-2650, SHE EXPRESSED CONCERN ABOUT HIS PAIN AND DISCOMFORT. DISCUSSED POC GOALS AND TREATMENT OPTIONS. PROGRESSING VERY SLOWLY TOWARDS GOALS.
--- NOTE | 2020-07-25 06:23 | NUR ---
ASSUMED CARE OF PATIENT AT 1900. PATIENT RESTING. REQUESTING PAIN MEDS FOR LEGS. EDUCATED PATIENT AND ABOUT REHAB PROCESS. ABLE TO FACETIME PATIENT FROM 2779-8943 AND AGAIN AT 0415 UNTIL 0445 PER THE REQUEST OF PATIENT. WORKING TOWARDS POC GOALS.
[2020-07-25 06:46] LABS: ALBUMIN 1.7 g/dL (3.4-5.0); CALCIUM 8.2 mg/dL (8.5-10.1); CREATININE 0.4 mg/dL (0.7-1.3); MAGNESIUM 1.9 mg/dL (1.8-2.4); POTASSIUM 3.6 mmol/L (3.5-5.1); TOTAL BILIRUBIN 0.4 mg/dL (0.2-1.0); TOTAL PROTEIN 5.6 g/dL (6.4-8.2)
--- NOTE | 2020-07-25 10:39 | NUR ---
nikolas called and spoke with his sarah via phone call. active listen and support during visit. she was tearful saying" sorry i just had short visit rt to covid policy and he was asking her not to leave but she was only able to visit for 15min, i understand the covid rules but he gets anxious when not able to stay longer time with him. mirian called and i want to go to [facility] for estefanía when say he is ready. if dr calabrese will call me with time frame after visit. i would like to plan and know when i can visit him there. thank you for calling"/ sarah. nikolas passed on information to hospitalist and is referring to resp . nikolas passed on information to dr calabrese. updates to be sent to [facility]. will cont following as needed for dc needs. [facility] is able to accept chest tubes and gtts currently, information passed on to resp MD.
--- NOTE | 2020-07-25 11:09 | NUR ---
Nutrition: REC restart tube feeds of Jevity 1.5 at 20 mL/hr, advance as tolerated to goal 60 mL/hr. REC re-evaluate water boluses as noted vomiting episode occurred after 350 mL H20 bolus given. Nsg had questioned if this was related to position as no prior issues with residuals. Pt also on IVFS. If ok per physician would rec decrease water flushes to 250 mL.
--- NOTE | 2020-07-25 15:14 | NUR ---
FAXED CLINICAL UPDATE TO [facility] RECEIVED CONFIRMATION AND LEFT MSG WITH CHANDLER IN ADM.
[2020-07-26] VITALS (31 sets, daily range): BP systolic 111–140; BP diastolic 64–83
--- NOTE | 2020-07-26 05:39 | NUR ---
ASSUMED CARE OF PATIENT AT 1900. DR PALMA TO BEDSIDE. URINARY CATHETER REPLACED PER VERBAL ORDER. LASIX GIVEN ONE TIME. SIGNIFICANT URINE OUTPUT. MEDICATED FOR PAIN AND DISCOMFORT DURING BLADDER IRRIGATION WITH UROLOGIST. RESTED WELL THROUGH THE NIGHT. ABLE TO FACETIME FROM 6088-5800. BLADDER IRRIGATION DONE AT 0500.
--- NOTE | 2020-07-26 08:31 | NUR ---
Assumed care at 0700, assessment and vital signs completed per ICU protocol. Pt's , Reema, facetimed with pt this morning from 07:30-8:00. Reema voiced she will come visit later this morning. RN will continue to monitor.
[2020-07-26 11:17] LABS: HEMATOCRIT 24.3 % (42.0-52.0); MCH 31.1 pg (26.0-34.0); MCHC 32.8 g/dL (28.0-37.0); MCV 94.7 fL (80.0-100.0); RBC 2.56 mil/uL (4.50-6.00); RDW 19.4 % (10.5-14.5); WBC 5.3 thou/uL (4.0-11.0)
[2020-07-26 11:26] LABS: ALBUMIN 1.6 g/dL (3.4-5.0); CREATININE 0.4 mg/dL (0.7-1.3); MAGNESIUM 1.7 mg/dL (1.8-2.4); TOTAL BILIRUBIN 0.3 mg/dL (0.2-1.0); TOTAL PROTEIN 5.5 g/dL (6.4-8.2)
[2020-07-26 11:29] LABS: POTASSIUM 2.8 mmol/L (3.5-5.1)
--- NOTE | 2020-07-26 14:42 | NUR ---
updates to be sent to [facility]. cm spoke with [facility] liaison to see if have auth from [facility]. " no auth given yet"/[facility]. will cont following as needed for dc needs.
[2020-07-27] VITALS (16 sets, daily range): BP systolic 105–151; BP diastolic 66–91
[2020-07-27 05:37] LABS: HEMATOCRIT 27.4 % (42.0-52.0); MCH 31.1 pg (26.0-34.0); MCHC 32.9 g/dL (28.0-37.0); MCV 94.8 fL (80.0-100.0); RBC 2.89 mil/uL (4.50-6.00); RDW 19.6 % (10.5-14.5)
[2020-07-27 05:52] LABS: CALCIUM 8.9 mg/dL (8.5-10.1); CREATININE 0.4 mg/dL (0.7-1.3); POTASSIUM 3.5 mmol/L (3.5-5.1)
--- NOTE | 2020-07-27 09:30 | NUR ---
chart review. pt cont with trach and peg. report from bedside nurse. he will be there through the weekend, and fever free. possible ready for dc to [facility] on thursday. [facility] liaison called and they received auth from [facility]. will cont following as needed for dc needs.
--- NOTE | 2020-07-27 09:52 | NUR ---
ASSUMED CARE AT 0700, ASSESSMENT AND VITAL SIGNS COMPLETED PER ICU PROTOCOL. RN WILL CONTINUE TO MONITOR.
--- NOTE | 2020-07-27 10:27 | NUR ---
Nutrition: Nsg plans to restart TF this am. Initial TF of Jevity 1.5 at 60 mL/hr. Issues related to vomiting. On increased amounts of pain meds, bowel issues. Did have 2 BM yesterday and is on reglan. Miralax PRN. Also has large water bolus order of 350 mL q 6 hrs and currently on IVFs. REC slow restart of tube feeds. Decrease water bolus to 250 mL q 6 hrs and continue beneprotein. Consider D/C IVFs if appropriate. Could also consider 2 Leonardo HN at 45 mL/hr (4.5 cartons/day) if lower goal rate is desired. If pt continues to have issues related to vomiting, REC TPN. Severe malnutrition, wasting and weight loss. Discussed with nsg.
[2020-07-28] VITALS (34 sets, daily range): BP systolic 104–143; BP diastolic 61–84
[2020-07-28 04:20] LABS: HEMATOCRIT 26.2 % (42.0-52.0); HEMOGLOBIN 8.6 gm/dL (14.0-18.0); MCH 31.1 pg (26.0-34.0); MCHC 32.6 g/dL (28.0-37.0); MCV 95.3 fL (80.0-100.0); RBC 2.75 mil/uL (4.50-6.00); RDW 19.8 % (10.5-14.5)
[2020-07-28 04:53] LABS: CALCIUM 8.8 mg/dL (8.5-10.1); CREATININE 0.5 mg/dL (0.7-1.3); POTASSIUM 3.4 mmol/L (3.5-5.1)
--- NOTE | 2020-07-28 10:00 | NUR ---
DR. CID AT BEDSIDE TO ASSESS PT. SPEAKING TO FOR UPDATE AND TO DISCUSS PLAN OF CARE.
--- NOTE | 2020-07-28 11:44 | NUR ---
Dr. Malik at bedside to assess pt. Spoke with pt and and provided update on pt status.
[2020-07-28 22:29] LABS: URINE BILIRUBIN NEGATIVE (Negative); URINE BLOOD NEGATIVE (Negative); URINE CLARITY CLEAR; URINE COLOR YELLOW; URINE GLUCOSE-RANDOM* NEGATIVE (Negative); URINE KETONES NEGATIVE (Negative); URINE LEUKOCYTES-REFLEX NEGATIVE (Negative); URINE NITRITE-REFLEX NEGATIVE (Negative); URINE PROTEIN (DIPSTICK) NEGATIVE (Negative); URINE SPECIFIC GRAVITY 1.015 (1.005-1.035); URINE UROBILINOGEN 0.2 E.U./dl (0.2-1.0)
[2020-07-29] VITALS (26 sets, daily range): BP systolic 112–138; BP diastolic 59–84
[2020-07-29 01:59] LABS: MAGNESIUM 1.7 mg/dL (1.8-2.4); POTASSIUM 3.6 mmol/L (3.5-5.1)
--- NOTE | 2020-07-29 09:39 | HC ---
[facility] [place] [address] CONSULTATION Name: REAL MIGUEL Room #: 247-P ADM IN M.R.#: [id number] Admission: 06/16/20 Attend Phys: Helga Hylton Discharge: Date of : 63 Report #: [id number] THIS REPORT FOR: cc: Sergio Vela Arnold L. DO [place], Roxane S. DO ~ NEUROLOGY CONSULT HISTORY OF PRESENT ILLNESS: The gentleman is a 54-year-old male who was first admitted to the hospital the day after 2019. The patient was initially admitted to the hospital for COVID. Subsequently, the patient has had a complicated course and is now on a trach and a PEG tube. He has significant weakness in the upper and lower extremities. I have been asked to see the patient for pain in the lower extremities. Apparently, whenever his legs are moved, he grimaces. The patient is able to communicate by shaking his head and mouthing words. I spoke to the patient's and she told me that she is concerned about his thinking. Sometimes he asks her to take him home, sometimes he does not know where he is and may repeat himself several times at each visit. The nurse told me that she comes every day to sit with him for an extended period of time. The patient has been on IV fentanyl, IV Precedex. Currently, he is off all drips for sedation. He has been receiving p.r.n. lorazepam, fentanyl, morphine sulfate. Some days, he received as much as 200 mcg of fentanyl in a day and 4 mg of morphine. The patient is also on metoclopramide. This, he has been getting because he has been having difficulty tolerating the feed tubes. He is also on scopolamine to help with any nausea associated with the tube feedings. When I spoke to his , she explained to me that he has anxiety. In the hospital, he has been getting Xanax 0.5 mg 3 times a day. PAST MEDICAL HISTORY: COVID positive, asthma, hypertension. PAST SURGICAL HISTORY: Negative. MEDICATIONS: In hospital, Mucomyst 600 mg t.i.d., vitamin C 1500 mg b.i.d., Azactam 1 g q. 8 hours, vitamin D 2000 international units daily, digoxin 0.125 mg daily, Lovenox 40 mg subcutaneous b.i.d., Lantus insulin 20 units at bedtime, Humalog insulin sliding scale, Lidoderm patch, Zyvox 600 mg b.i.d., lorazepam 0.5 mg as needed for anxiety, metoclopramide 5 mg q. 6 hours, metoprolol 12.5 mg q. 6 hours, micafungin 100 mg daily, morphine 2 mg p.r.n. pain, pantoprazole 40 mg b.i.d., scopolamine patch every 3 days, thiamine 100 mg daily, zinc 220 mg daily, fentanyl patch 25 mcg every [address] [address] CONSULTATION Name: LAMONTREAL BIJU Room #: 247-P [facility] IN M.R.#: [id number] Admission: 06/16/20 Attend Phys: Helga Hylton Discharge: Date of : 63 Report #: [id number] ALLERGIES: PENICILLIN, EGG, SHELLFISH. PHYSICAL EXAMINATION: VITAL SIGNS: Pulse 84, temperature 37.8, respiratory rate 10, blood pressure 105/62, bedside pulse oximetry 93% on the ventilator. NEUROLOGIC: Cranial nerves 2-12 are grossly intact. The patient was able to answer questions by shaking his head yes or no, or by mouthing words. Motor exam demonstrates significant weakness in the upper and lower extremities. Particularly in the upper extremities, there was no significant movement in the left upper extremity, but in the right upper extremity, he is able to flex and extend his fingers a bit and in the lower extremities, he is able to move his legs by rotating them in and out. Reflexes are absent. Plantar responses are flexor. Coordination cannot be performed nor can gait. The patient has pain in his feet to the arch, from the toes to the arch. Range of motion did not elicit significant knee pain, but range of motion of the right foot, particularly at the ankle elicited some discomfort. IMPRESSION: This patient has pain in the lower extremities. The left leg seems to be more involved than the right. There is also a component of depression and anxiety. I have reduced the dose of Xanax to 0.5 mg b.i.d. If he becomes anxious with the reduction in Xanax, I would recommend low dose gabapentin 100 mg b.i.d. to t.i.d. The nurse tells me that fentanyl is ineffective and I have discontinued it. The fentanyl will be replaced on 07/31/2020. I have reduced the dose to 12 mcg and would give him only 2 more doses, then discontinue the medication. The dose of morphine has been reduced to 2 mg to be given at one time, but I would prefer that Tylenol be used in its place. I have begun low dose citalopram 10 mg daily. He is on continuous heart monitoring, but if he does leave this facility, he should have an EKG in 1 week to look for QT prolongation. I also applied a lidocaine patch on each foot from the toes to the arch. The patch was helpful within minutes. As it turns out, the patch does not work that quickly. Regardless, the patient was better. We also tried with the nurse to reposition his lower extremities. I suspect some of this pain is from lying in bed for as long as he has. However, if it continues, he may require other diagnostic studies such as x-rays not necessarily of the hips, but perhaps of the knees and the ankle. [facility] [address] [place] [address] CONSULTATION Name: REAL MIGUEL Room #: 247-P [facility] IN ..#: [id number] Admission: 06/16/20 Attend Phys: Helga Hylton Discharge: Date of : 63 Report #: [id number] I thank you for your kind referral of the patient and will follow up with him tomorrow. <ELECTRONICALLY SIGNED> By: Jaycee Ny DO 07/29/20 0939 1021 1222 Jaycee Ny DO /nt
[2020-07-30] VITALS (24 sets, daily range): BP systolic 117–136; BP diastolic 65–79
[2020-07-30 05:55] LABS: HEMATOCRIT 24.7 % (42.0-52.0); HEMOGLOBIN 7.9 gm/dL (14.0-18.0); MCH 30.5 pg (26.0-34.0); MCHC 31.9 g/dL (28.0-37.0); MCV 95.5 fL (80.0-100.0); RBC 2.58 mil/uL (4.50-6.00); RDW 19.3 % (10.5-14.5); WBC 8.2 thou/uL (4.0-11.0)
[2020-07-30 06:06] LABS: CALCIUM 8.1 mg/dL (8.5-10.1); CREATININE 0.5 mg/dL (0.7-1.3)
--- NOTE | 2020-07-30 07:28 | EKG ---
[place] [address] [place] [address] ELECTROCARDIOGRAM REPORT Name: REAL MIGUEL Room #: 247-P ADM IN M.R.#: [id number] Admission: 06/16/20 Attend Phys: Helga Hylton Discharge: Date of : 63 Report #: [id number] [facility] Test Date: 2020-07-29 Test Time: 08:35:50 Pat Name: REAL MIGUEL Department: Room: 247 P Gender: M Employee Communications Manager: juliana : 1965 Requested By: Jethro Malik Order Number: [id number] MD: Blane Huynh Measurements Intervals [place] Rate: 82 P: 34 MO: 152 QRS: -23 QRSD: 98 T: 63 QT: 393 QTc: 459 Interpretive Statements Sinus rhythm Borderline left axis deviation Poor R wave progression Nonspecific ST segment abnormality Compared to ECG 07/07/2020 10:59:59 Sinus tachycardia no longer present Electronically Signed On 07-30-2020 7:27:59 SPECIAL EDUCATION ASSOCIATE by Blane Huynh [email or web address] <ELECTRONICALLY SIGNED> By: Blane Huynh MD, [facility] 07/30/2027 4 Blane Huynh MD, FACC /EPI
--- NOTE | 2020-07-30 10:18 | NUR ---
0986 - PT'S ADRIAN IN ROOM, ESCORTED IN BY ANOTHER RN. RN PROVIDED CURRENT CLINICAL PICTURE FOR THE PT, CURRENT MEDICATIONS THAT ARE RUNNING, WHAT WAS DONE FOR THE PT IN THE MORNING WELL PLAN. PRIMARY QUESTION WAS REGARDING DISCHARGE. ADRIAN STATED THAT THE LTAC HAS NOT REACHED OUT TO THIS POINT. RN WILL FOLLOW UP WITH CASEMANAGER REGARDING THIS AND GET BACK TO THE FAMILY MEMBER. REAL REQUESTED A "TIM" TO WHICH RN UNDERSTOOD SOME OINTMENT FOR THE LEFT EAR PAIN, WHEN ASKED TO ADRIAN, SHE DID NOT KNOW MUCH ABOUT IT EITHER. RN WILL FOLLOW UP WITH THIS LATER ON WELL. IT WAS ALSO DISCUSSED WITH THE DIETARY TEAM REGARDING WHY THE TUBE FEEDING WAS STOPPED AND WHEN IT WILL RESUME, RN WILL FOLLOW UP WITH THE HOSPITALIST LATER TODAY
--- NOTE | 2020-07-30 11:30 | NUR ---
per hospitalist ready for dc to [facility]. [facility] would like 3pm transportation time. chart copy requested. bedside nurse to call report to [phone]
[2020-07-30] MEDS ORDERED: DIGOXIN125 MCG PO (12:09)
[2020-07-30] MEDS ORDERED: ALBUTEROL2.5 MG/0.5 INH (12:09)
[2020-07-30] MEDS ORDERED: METOPROLOL TART25 MG PER TUBE (12:10)
[2020-07-30] MEDS ORDERED: DURAGESIC1 EACH TRANSDERM (12:10)
[2020-07-30] MEDS ORDERED: CELEXA10 MG PO (12:11)
[2020-07-30] MEDS ORDERED: ALPRAZOLAM 0.50.5 MG PER TUBE (12:11)
[2020-07-30] MEDS ORDERED: NEURONTIN250 MG/5 M PER TUBE (12:11)
[2020-07-30] MEDS ORDERED: LIDOPATCH1 EACH TRANSDERM (12:12)
[2020-07-30] MEDS ORDERED: LANTUS SUBQ (12:12)
[2020-07-30] MEDS ORDERED: Transderm-Scop 1MG/7 TRANSDERM (12:12)
[2020-07-30] MEDS ORDERED: ACETYLCYST200 MG/1 M INH (12:12)
[2020-07-30] MEDS ORDERED: VITAMIN D325 MC1 PO (12:13)
[2020-07-30] MEDS ORDERED: VITAMINC500 PO (12:13)
[2020-07-30] MEDS ORDERED: VITAMIN B-1100 M2 PO (12:13)
[2020-07-30] MEDS ORDERED: PROTONIX40 M4 PO (12:14)
[2020-07-30] MEDS ORDERED: REGLAN 5 MG TAB5 MG PO (12:14)
[2020-07-30] MEDS ORDERED: AZACTAM 1 GM VIA1 G1 IV (12:15)
[2020-07-30] MEDS ORDERED: FLUCONAZOLE200 MG PO (12:16)
[2020-07-30] MEDS ORDERED: ZYVOX600 MG/300 IVPB (12:16)
--- NOTE | 2020-07-30 17:05 | NUR ---
PT DISCHARGING TODAY TO [facility] FAXED DC ORDERS/SUMMARY TO FACILITY SPOKE WITH CHANDLER IN ADM SHE RECEIVED ORDERS AND TRANSPORT ARRANGED WITH [facility] FOR 1600. SPOKE WITH PT'S SHE AGREED WITH DC PLAN. CHART COPY PER US.
== END 2020-07-30 16:51 | DRG 3 ==
LOC: ER 04:49 → 3W 06:04 → ICU 06:04 → EROBS 06:04 → 3W 12:16 → ICU 06-19 13:48
PROVIDERS: Emergency Medicine; Hospitalist; Internal Medicine; Internal Medicine Pulmonary Disease; Nurse Practitioner; Nurse Practitioner Family; Pediatrics; Specialist; ADMIT Hospitalist; ATTEND Hospitalist
PROC: XW033E5 Introduction of Remdesivir Anti-infective into Peripheral Vein, Percutaneous Approach, New Technology Group 5 (ICD-10-PCS; principal; 2020-06-16)
PROC: 5A1955Z Respiratory Ventilation, Greater than 96 Consecutive Hours (ICD-10-PCS; 2020-06-19)
PROC: 02HV33Z Insertion of Infusion Device into Superior Vena Cava, Percutaneous Approach (ICD-10-PCS; 2020-06-19)
PROC: 0BH18EZ Insertion of Endotracheal Airway into Trachea, Via Natural or Artificial Opening Endoscopic (ICD-10-PCS; 2020-06-19)
PROC: B548ZZA Ultrasonography of Superior Vena Cava, Guidance (ICD-10-PCS; 2020-06-19)
PROC: 0W994ZZ Drainage of Right Pleural Cavity, Percutaneous Endoscopic Approach (ICD-10-PCS; 2020-06-24)
PROC: 0DJ08ZZ Inspection of Upper Intestinal Tract, Via Natural or Artificial Opening Endoscopic (ICD-10-PCS; 2020-06-26)
PROC: 0W9B4ZZ Drainage of Left Pleural Cavity, Percutaneous Endoscopic Approach (ICD-10-PCS; 2020-06-27)
PROC: 30233N1 Transfusion of Nonautologous Red Blood Cells into Peripheral Vein, Percutaneous Approach (ICD-10-PCS; 2020-07-06)
PROC: 0BJ08ZZ Inspection of Tracheobronchial Tree, Via Natural or Artificial Opening Endoscopic (ICD-10-PCS; 2020-07-07)
PROC: 0DH63UZ Insertion of Feeding Device into Stomach, Percutaneous Approach (ICD-10-PCS; 2020-07-11)
PROC: 0W994ZZ Drainage of Right Pleural Cavity, Percutaneous Endoscopic Approach (ICD-10-PCS; 2020-07-11)
PROC: 0B110F4 Bypass Trachea to Cutaneous with Tracheostomy Device, Open Approach (ICD-10-PCS; 2020-07-11)
DX: A41.89 Other specified sepsis (principal); U07.1 COVID-19; J12.82 Pneumonia due to coronavirus disease 2019; J80 Acute respiratory distress syndrome; K29.71 Gastritis, unspecified, with bleeding; R65.21 Severe sepsis with septic shock; G93.41 Metabolic encephalopathy; E43 Unspecified severe protein-calorie malnutrition; N17.9 Acute kidney failure, unspecified; I48.20 Chronic atrial fibrillation, unspecified; E87.0 Hyperosmolality and hypernatremia; J93.9 Pneumothorax, unspecified; I47.1 Supraventricular tachycardia; I10 Essential (primary) hypertension; L89.899 Pressure ulcer of other site, unspecified stage; J45.909 Unspecified asthma, uncomplicated; D64.9 Anemia, unspecified; I95.9 Hypotension, unspecified; K20.90 Esophagitis, unspecified without bleeding; J98.2 Interstitial emphysema; Z79.899 Other long term (current) drug therapy; Z88.0 Allergy status to penicillin; Z68.24 Body mass index [BMI] 24.0-24.9, adult
CPT/HCPCS: 10203; 10879; 50101; 50386; 50403; 50497; 56524; 56525; 62110; 62900; 85076

== ENCOUNTER → 2020-12-03 | Outpatient (CLI) | payer OTHER ==
[~2020-12-03] MED LIST: ACETYLCYST200 MG/1 M INH; ALBUTEROL2.5 MG/0.5 INH; ALPRAZOLAM 0.50.5 MG PER TUBE; AVAPRO300 MG PO; AZACTAM 1 GM VIA1 G1 IV; AZITHROMYCIN 2250 MG PO; CELEXA10 MG PO; DIGOXIN125 MCG PO; DURAGESIC1 EACH TRANSDERM; FLUCONAZOLE200 MG PO; LANTUS SUBQ; LIDOPATCH1 EACH TRANSDERM; METOPROLOL TART25 MG PER TUBE; MULTI VITAMIN1 EACH PO; NEURONTIN250 MG/5 M PER TUBE; PROTONIX40 M4 PO; REGLAN 5 MG TAB5 MG PO; SYMBICORT160 MCG/4. INH; Transderm-Scop 1MG/7 TRANSDERM; VENTOLIN HFA INH8 GM INH; VITAMIN B-1100 M2 PO; VITAMIN D325 MC1 PO; VITAMIN D325 MC5 PO; VITAMINC500 PO; ZINC SULFATE220 MG PO; ZYRTEC10 M5 PO; ZYVOX600 MG/300 IVPB
--- NOTE | 2020-12-03 10:03 | 2DMMODE ---
[facility] [address] [place] [address] 2 D/M-MODE ECHOCARDIOGRAM Name: REAL MIGUEL Room #: REG RIAN Cynthia.#: [id number] Admission: 12/03/20 Attend Phys: Physician not on staff Discharge: Date of : 63 Report #: [id number] THIS REPORT FOR: cc: Sergio Vela Arnold L. DO Park, Jin S. MD ~ APPROVED REPORT Study performed: 12/03/2020 09:24:45 EXAM: Comprehensive 2D, Doppler, and color-flow Echocardiogram Patient Location: In-Patient Status: routine BSA: 1.83 HR: 79 bpm BP: 106/67 mmHg Rhythm: NSR Other Information Study Quality: Excellent Indications Leg swelling. History of COVID in May 2020, was in ICU on vent for 45days. 2D Dimensions RVDd: 29.00 mm IVSd: 13.00 (7-11mm) LVOT Diam: 23.00 (18-24mm) LVDd: 48.00 mm PWd: 12.00 (7-11mm) Ascending Ao: 40.00 (22-36mm) LVDs: 35.00 (25-40mm) Left Atrium: 39.00 (27-40mm) Aortic Root: 41.00 mm Volumes Left Atrial Volume (Systole) Single Plane 4CH: 43.23 mL Single Plane 2CH: 52.23 mL LA ESV Index: 28.00 mL/m2 Aortic Valve AoV Peak Maycol.: 1.81 m/s AO Peak Gr.: 13.11 mmHg LVOT Max P.12 mmHg LVOT Max V: 1.13 m/s [facility] [address] [place] [address] 2 D/M-MODE ECHOCARDIOGRAM Name: REAL MIGUEL Room #: REG CL [facility]#: [id number] Admission: 12/03/20 Attend Phys: Physician not on s Discharge: Date of : 63 Report #: [id number] ENID Vmax: 2.63 cm2 Mitral Valve E/A Ratio: 0.7 MV Decel. Time: 168.10 ms MV E Max Maycol.: 0.56 m/s MV A Maycol.: 0.83 m/s MV PHT: 48.75 ms IVRT: 107.27 ms Pulmonary Valve PV Peak Maycol.: 0.99 m/s PV Peak Gr.: 3.92 mmHg Pulmonary Vein P Vein S: 0.65 m/s P Vein A: 0.44 m/s P Vein D: 0.66 m/s P Vein A Dur.: 103.8 msec P Vein S/D Ratio: 0.98 Tricuspid Valve TR Peak Maycol.: 2.57 m/s RAP Estimate: 5.00 mmHg TR Peak Gr.: 26.41 mmHg PA Pressure: 31.00 mmHg Left Ventricle The left ventricle is normal size. There is normal LV segmental wall motion. Mild concentric left ventricular hypertrophy. Left ventricular systolic function is normal. LVEF is 55-60%. Mild diastolic dysfunction is present (impaired relaxation pattern). Right Ventricle The right ventricle is normal size. The right ventricular systolic function is normal. Atria The left atrium size is normal. The right atrium size is normal. Aortic Valve The aortic valve is normal in structure. Trace aortic regurgitation. There is no aortic valvular stenosis. Mitral Valve The mitral valve is normal in structure. There is no mitral valve regurgitation noted. No evidence of mitral valve stenosis. [facility] [address] [place] [place] [address] 2 D/M-MODE ECHOCARDIOGRAM Name: REAL MIGUEL Room #: REG CL [facility].#: [id number] Admission: 12/03/20 Attend Phys: Physician not on s Discharge: Date of : 63 Report #: [id number] Tricuspid Valve The tricuspid valve is normal in structure. Mild tricuspid regurgitation. Estimated PAP is 31mmHg. Pulmonic Valve The pulmonary valve is normal in structure. Trace pulmonic regurgitation. Great Vessels Aortic root is dilated (4.1cm). Ascending aorta is dilated (4.0cm). IVC is normal in size and collapses >50% with inspiration. Pericardium There is no pericardial effusion. <Conclusion> The left ventricle is normal size. Mild concentric left ventricular hypertrophy. Left ventricular systolic function is normal. Mild diastolic dysfunction is present (impaired relaxation pattern). The right ventricle is normal size. The left atrium size is normal. Trace aortic regurgitation. There is no mitral valve regurgitation noted. Mild tricuspid regurgitation. Estimated PAP is 31mmHg. <ELECTRONICALLY SIGNED> By: Thiago Law MD 12/03/20 1003 1003 1003 Thiago Law MD /INF
== END ==
LOC: CV 09:15
DX: I07.1 Rheumatic tricuspid insufficiency (principal); M79.89 Other specified soft tissue disorders; I77.810 Thoracic aortic ectasia

== ENCOUNTER → 2021-03-28 | Outpatient (CLI) | payer OTHER | LOC: RAD 12:51 | PROVIDERS: ATTEND Pediatrics | DX: R06.02 Shortness of breath (principal); J98.4 Other disorders of lung ==

== ENCOUNTER 2021-07-22 17:35 | Emergency (ER) | payer OTHER ==
[~2021-07-22] VITALS: Ht 175.3 cm; Wt 81.7 kg
[2021-07-22] MEDS ORDERED: NORCO5 PO (20:42)
[2021-07-22 21:10] VITALS: BP 137/78
== END 2021-07-22 21:24 | disposition home or self-care (01) ==
LOC: ER 17:35
DX: S62.398A Other fracture of other metacarpal bone, initial encounter for closed fracture (principal); S62.623A Displaced fracture of middle phalanx of left middle finger, initial encounter for closed fracture; I10 Essential (primary) hypertension; J45.909 Unspecified asthma, uncomplicated; I48.91 Unspecified atrial fibrillation; Z91.09 Other allergy status, other than to drugs and biological substances; Z86.16 Personal history of COVID-19; Z91.012 Allergy to eggs; Z91.018 Allergy to other foods; Z91.013 Allergy to seafood; Z79.51 Long term (current) use of inhaled steroids; Z79.4 Long term (current) use of insulin; Z79.899 Other long term (current) drug therapy; Z79.891 Long term (current) use of opiate analgesic; Z79.1 Long term (current) use of non-steroidal anti-inflammatories (NSAID); Z88.0 Allergy status to penicillin; W13.2XXA Fall from, out of or through roof, initial encounter; Y93.89 Activity, other specified; Y92.89 Other specified places as the place of occurrence of the external cause; Y99.8 Other external cause status